=== PATIENT | female | born 1945 | race Hispanic/Latino ===

== ENCOUNTER 2019-01-13 06:44 | Inpatient (IN) | payer MEDICARE ==
--- NOTE | 2019-01-13 07:32 | Emergency Department Report ---
ED General Adult HPI - General Chief complaint: Dyspnea/Respdistress Stated complaint: ELLIE Time Seen by Provider: 01/13/19 06:56 Source: patient, EMS Mode of arrival: Stretcher Limitations: No Limitations - History of Present Illness Initial comments: The patient presents to emergency department with a chief complaint of increased shortness of breath with exertion. The patient recently flew from [place] through [place] to [facility] for vacation and they were on the first leg back to [place] and had a layover in [place] when they decided they should seek medical attention. Patient does endorse having some chest pain yesterday and also endorses being a smoker. -: Sudden Severity scale (0 -10): 0 Improves with: none Worsens with: none Associated Symptoms: denies other symptoms Treatments Prior to Arrival: none - Related Data Allergies Allergy/AdvReac Type Severity Reaction Status Date / Time No Known Allergies Allergy Verified 01/13/19 06:45 ED Review of Systems ROS: Stated complaint: ELLIE Other details as noted in HPI Comment: All other systems reviewed and negative Constitutional: denies: chills, fever Eyes: denies: eye pain, eye discharge, vision change ENT: denies: ear pain, throat pain Respiratory: shortness of breath, SOB with exertion. denies: cough, wheezing Cardiovascular: denies: chest pain, palpitations Endocrine: no symptoms reported Gastrointestinal: denies: abdominal pain, nausea, diarrhea Genitourinary: denies: urgency, dysuria, discharge Musculoskeletal: denies: back pain, joint swelling, arthralgia Skin: denies: rash, lesions Neurological: denies: headache, weakness, paresthesias Psychiatric: denies: anxiety, depression Hematological/Lymphatic: denies: easy bleeding, easy bruising ED Past Medical Hx - Past Medical History Previous Medical History?: Yes Hx Hypertension: Yes Hx of Cancer: Yes (Skin) Hx COPD: Yes - Surgical History Past Surgical History?: Yes Additional Surgical History: Hysterectomy. Back - Social History Smoking Status: Current Every Day Smoker Substance Use Type: None ED Physical Exam - General Limitations: No Limitations General appearance: alert, in no apparent distress - Head Head exam: Present: atraumatic, normocephalic - Eye Eye exam: Present: normal appearance, PERRL, EOMI - ENT ENT exam: Present: mucous membranes moist - Neck Neck exam: Present: normal inspection - Respiratory Respiratory exam: Present: normal lung sounds bilaterally, rales. Absent: respiratory distress, wheezes - Cardiovascular Cardiovascular Exam: Present: regular rate, normal rhythm. Absent: systolic m urmur, diastolic murmur, rubs, gallop - GI/Abdominal GI/Abdominal exam: Present: soft, normal bowel sounds. Absent: distended, tenderness - Extremities Exam Extremities exam: Present: normal inspection - Back Exam Back exam: Present: normal inspection - Neurological Exam Neurological exam: Present: alert, oriented X3, CN II-XII intact. Absent: motor sensory deficit - Psychiatric Psychiatric exam: Present: normal affect, normal mood - Skin Skin exam: Present: warm, dry, intact, normal color. Absent: rash ED Course Vital Signs 01/13/19 06:45 Temperature 97.6 F Pulse Rate 102 H Respiratory 22 Rate Blood Pressure 136/70 O2 Sat by Pulse 93 Oximetry ED Medical Decision Making - Lab Data Result diagrams: 01/13/19 07:34 01/13/19 07:35 Lab Results 01/13/19 01/13/19 01/13/19 Range/Units 07:34 07:35 07:35 WBC 13.0 H (4.5-11.0) K/mm3 RBC 3.95 (3.65-5.03) M/mm3 Hgb 12.7 (10.1-14.3) gm/dl Hct 36.5 (30.3-42.9) % MCV 92 (79-97) fl MCH 32 (28-32) pg MCHC 35 H (30-34) % RDW 14.3 (13.2-15.2) % Plt Count 196 (140-440) K/mm3 Lymph % (Auto) 7.4 L (13.4-35.0) % [place] % (Auto) 7.1 (0.0-7.3) % Eos % (Auto) 0.2 (0.0-4.3) % Baso % (Auto) 0.2 (0.0-1.8) % Lymph # 1.0 L (1.2-5.4) K/mm3 [place] # 0.9 H (0.0-0.8) K/mm3 Eos # 0.0 (0.0-0.4) K/mm3 Baso # 0.0 (0.0-0.1) K/mm3 Seg Neutrophils % 85.1 H (40.0-70.0) % Seg Neutrophils # 11.1 H (1.8-7.7) K/mm3 PT 14.3 (12.2-14.9) Sec. INR 1.05 (0.87-1.13) APTT 32.2 (24.2-36.6) Sec. POC ABG pH (7.35-7.45) POC ABG pCO2 (35-45) POC ABG pO2 (80-105) POC ABG HCO3 (22-26 mml/L) POC ABG Total CO2 (23-27mmol/L) POC ABG O2 Sat POC ABG Base Excess ((-2) - (+3)mmol/L) FiO2 % Sodium 140 (137-145) mmol/L Potassium 3.4 L (3.6-5.0) mmol/L Chloride 102.5 (98-107) mmol/L Carbon Dioxide 22 (22-30) mmol/L Anion Gap 19 mmol/L BUN 22 H (7-17) mg/dL Creatinine 0.8 (0.7-1.2) mg/dL Estimated GFR > 60 ml/min BUN/Creatinine Ratio 28 % Glucose 120 H (65-100) mg/dL Calcium 9.2 (8.4-10.2) mg/dL Total Bilirubin 2.20 H (0.1-1.2) mg/dL AST 43 H (5-40) units/L ALT 30 (7-56) units/L Alkaline Phosphatase 149 H (35-129) units/L Troponin T (0.00-0.029) ng/mL NT-Pro-B Natriuret Pep 6541 H (0-900) pg/mL Total Protein 6.4 (6.3-8.2) g/dL Albumin 3.4 L (3.9-5) g/dL Albumin/Globulin Ratio 1.1 % 01/13/19 01/13/19 Range/Units 07:35 08:19 WBC (4.5-11.0) K/mm3 RBC (3.65-5.03) M/mm3 Hgb (10.1-14.3) gm/dl Hct (30.3-42.9) % MCV (79-97) fl MCH (28-32) pg MCHC (30-34) % RDW (13.2-15.2) % Plt Count (140-440) K/mm3 Lymph % (Auto) (13.4-35.0) % [place] % (Auto) (0.0-7.3) % Eos % (Auto) (0.0-4.3) % Baso % (Auto) (0.0-1.8) % Lymph # (1.2-5.4) K/mm3 [place] # (0.0-0.8) K/mm3 Eos # (0.0-0.4) K/mm3 Baso # (0.0-0.1) K/mm3 Seg Neutrophils % (40.0-70.0) % Seg Neutrophils # (1.8-7.7) K/mm3 PT (12.2-14.9) Sec. INR (0.87-1.13) APTT (24.2-36.6) Sec. POC ABG pH 7.378 (7.35-7.45) POC ABG pCO2 34.0 L (35-45) POC ABG pO2 53 L (80-105) POC ABG HCO3 20.0 (22-26 mml/L) POC ABG Total CO2 21 (23-27mmol/L) POC ABG O2 Sat 87 POC ABG Base Excess -5 ((-2) - (+3)mmol/L) FiO2 40 % Sodium (137-145) mmol/L Potassium (3.6-5.0) mmol/L Chloride (98-107) mmol/L Carbon Dioxide (22-30) mmol/L Anion Gap mmol/L BUN (7-17) mg/dL Creatinine (0.7-1.2) mg/dL Estimated GFR ml/min BUN/Creatinine Ratio % Glucose (65-100) mg/dL Calcium (8.4-10.2) mg/dL Total Bilirubin (0.1-1.2) mg/dL AST (5-40) units/L ALT (7-56) units/L Alkaline Phosphatase (35-129) units/L Troponin T 0.029 (0.00-0.029) ng/mL NT-Pro-B Natriuret Pep (0-900) pg/mL Total Protein (6.3-8.2) g/dL Albumin (3.9-5) g/dL Albumin/Globulin Ratio % - Radiology Data Radiology results: report reviewed - Medical Decision Making The patient was placed on nonrebreather mask at 15 L and O2 sats increased to 96% O2 was removed the patient's oxygen level dropped to 58% 30 mL/kg IV fluids were declined due to Fluid Overload by the Patient and Her Sister Who Is a Nurse. IV antibiotics initiated IV Lasix was given Discussed results in detail with the patient and her sister Critical Care Time: Yes Critical care time in (mins) excluding proc time.: 45 Critical care attestation.: If time is entered above; I have spent that time in minutes in the direct care of this critically ill patient, excluding procedure time. ED Disposition Clinical Impression: Hypoxia, Pulmonary edema Disposition: OP ADMIT IP TO THIS HOSP Is pt being admited?: Yes Does the pt Need Aspirin: No Condition: Stable Instructions: Pulmonary Edema (ED) Referrals: NILDA JOHNS MD [Primary Care Provider] - 3-5 Days
[2019-01-13 07:42] LABS: Basophils % (Auto) 0.2 % (0.0-1.8); Eosinophils % (Auto) 0.2 % (0.0-4.3); Hematocrit 36.5 % (30.3-42.9); Hemoglobin 12.7 gm/dl (10.1-14.3); Lymphocytes % (Auto) 7.4 % (13.4-35.0); Mean Corpuscular HGB Conc 35 % (30-34); Mean Corpuscular Volume 92 fl (79-97); Monocytes # (Auto) 0.9 K/mm3 (0.0-0.8); Monocytes % (Auto) 7.1 % (0.0-7.3); Platelet Count 196 K/mm3 (140-440); Red Blood Count 3.95 M/mm3 (3.65-5.03); Red Cell Distribution Width 14.3 % (13.2-15.2)
[2019-01-13 07:53] LABS: INR 1.05 (0.87-1.13); Partial Thromboplastin Time 32.2 Sec. (24.2-36.6)
[2019-01-13 08:07] LABS: Alanine Aminotransferase 30 units/L (7-56); Albumin 3.4 g/dL (3.9-5); BUN/Creatinine Ratio 28; Blood Urea Nitrogen 22 mg/dL (7-17); Calcium 9.2 mg/dL (8.4-10.2); Hemolysis Index 0
--- NOTE | 2019-01-13 09:31 | Cat Scan Report ---
PROCEDURE: CT ANGIO CHEST TECHNIQUE: CT angiography of the chest was performed. IV contrast was administered. Axial images and coronal and sagittal reformatted images were obtained. HISTORY: hypoxia/PE COMPARISON: None FINDINGS: There are atherosclerotic calcifications in the thoracic aorta. There are coronary artery calcifications. There is no aortic dissection seen. There are no abnormal pulmonary arterial filling defects seen to indicate acute pulmonary emboli. There are nonspecific small to borderline lymph nodes in the mediastinum. There is diffuse interstitial thickening. While some of this may be chronic, appearance suggests poss ible superimposed interstitial infiltrate or edema. There is mild emphysema. There is no pneumothorax seen. There is a 3.4 cm left adrenal gland mass. IMPRESSION: There is no aortic dissection or pulmonary embolism seen. Diffuse interstitial thickening. While some of this could be chronic, I cannot exclude superimposed i nterstitial infiltrate or edema. Mild emphysema. Coronary and aortic atherosclerotic calcification. 3.4 cm left adrenal gland mass. Most likely this is a benign adenoma. Nevertheless, if stability vivian ot be established by comparison to old studies, consider correlation with MRI. This document is electronically signed by Meg Love MD., January 13 2019 09:29:11 AM ET
[2019-01-13] MEDS ORDERED: LASIX IV ONE (10:14)
[2019-01-13] MEDS ORDERED: ZITHROMAX 500 MG in NACL 0.9% 250ML 250 ML IV SCH (11:00)
[2019-01-13] MEDS ORDERED: LASIX ONE (11:17)
--- NOTE | 2019-01-13 12:08 | History and Physical Report ---
History of Present Illness Date of examination: 01/13/19 Date of admission: 01/13/19 10:20 Chief complaint: Shortness of breath History of present illness: Patient is 73 yo with CHF, COPD, hypertension. She lives in [place], went to [place] for family reunion. In [place], became short of breath but came on flight, transited [place]. Shortness of breath worse therefore came to ED for evaluation. CT shows interstital infiltrates vs edema, no PE. Patient states she missed lasix for 2 days. She was very short of breath in ED, therefore started on supplemental Oxygen by ventimask. She was initially admitted to [facility]. Will transfer to Telemetry. Past History Past Medical History: COPD, heart failure (Systolic), hypertension Past Surgical History: hysterectomy, Other (Back surgery) Social history: lives with family, smoking (Smokes 1 pack cigarettes/day for 50yrs) Family history: cancer (Breast), hypertension Medications and Allergies Allergies Allergy/AdvReac Type Severity Reaction Status Date / Time No Known Allergies Allergy Verified 01/13/19 06:45 Home Medications Medication Instructions Recorded Confirmed Last Taken Type AtorvaSTATin [Lipitor] 20 mg PO QHS 01/13/19 01/13/19 Unknown History Furosemide [Lasix] 20 mg PO QDAY 01/13/19 01/13/19 Unknown History Metoprolol Tartrate 50 mg PO QAM 01/13/19 01/13/19 Unknown History Oxybutynin Xl [Ditropan Xl] 5 mg PO DAILY 01/13/19 01/13/19 Unknown History PARoxetine HCl [PARoxetine] 40 mg PO QAM 01/13/19 01/13/19 Unknown History amLODIPine [Norvasc] 5 mg PO DAILY 01/13/19 01/13/19 Unknown History traZODone [Desyrel] 100 mg PO QHS 01/13/19 01/13/19 Unknown History Ambien 5 PO 01/14/19 Unknown History Active Meds: Active Medications Azithromycin 500 mg/ Sodium (Chloride) 250 mls @ 250 mls/hr IV Q24HR [facility]; Protocol Last Admin: 01/13/19 11:26 Dose: 250 mls/hr Documented by: Ceftriaxone Sodium (Rocephin/Ns 2 Gm/100 Ml) 2 gm in 100 mls @ 200 mls/hr IV Q24H [facility]; Protocol Review of Systems All systems: negative (No fever, No headache, no abd pain, no urinary symptoms. All other systems reviewed and are negative) Exam - Physical Exam Narrative exam: GEN: In mild respiratory distress, lying in bed, venti mask on HEENT: Normocephalic, atraumatic, Neck: supple, No JVD heart: S1 and S2 reg tachycardia, no murmurs,has gallop Lungs: Bilateral basal crackles , no wheeze Abd:soft, non tender, non distended, normal bowel sounds Ext: No edema,no clubbing, no cyanosis, Neuro:Awake,alert,oriented X 3, no focal signs, moves all ext Psych: normal mood - Constitutional Vitals: Temp Pulse Resp BP Pulse Ox 97.6 F 90 22 128/70 93 01/13/19 06:45 01/13/19 11:26 01/13/19 11:26 01/13/19 11:26 01/13/19 11:26 Results - Labs CBC & Chem 7: 01/14/19 05:20 01/14/19 05:20 Labs: Abnormal lab results 01/13/19 01/13/19 01/13/19 Range/Units 07:34 07:35 08:19 WBC 13.0 H (4.5-11.0) K/mm3 MCHC 35 H (30-34) % Lymph % (Auto) 7.4 L (13.4-35.0) % Lymph # 1.0 L (1.2-5.4) K/mm3 [place] # 0.9 H (0.0-0.8) K/mm3 Seg Neutrophils % 85.1 H (40.0-70.0) % Seg Neutrophils # 11.1 H (1.8-7.7) K/mm3 POC ABG pCO2 34.0 L (35-45) POC ABG pO2 53 L (80-105) Potassium 3.4 L (3.6-5.0) mmol/L BUN 22 H (7-17) mg/dL Glucose 120 H (65-100) mg/dL Total Bilirubin 2.20 H (0.1-1.2) mg/dL AST 43 H (5-40) units/L Alkaline Phosphatase 149 H (35-129) units/L NT-Pro-B Natriuret Pep 6541 H (0-900) pg/mL Albumin 3.4 L (3.9-5) g/dL Assessment and Plan Acute respiratory failure due to CHF exacerbation. Admit to Telemetry Oxygen supplementation Consult Pulmonology Patient lives in [place], in transit Acute on chronic systolic CHF patient admits she missed 2 days of lasix Lasix iv bid Consult cardiology Obtain Echo COPD Emphesema changes seen on CT chest Duoneb Hypertension Monitor BP DVT prophylaxis. Will start Heparin Full code status
[2019-01-13] MEDS ORDERED: SODIUM CHLORIDE FLUSH SYRINGE 10 ML IV PRN (12:27)
[2019-01-13] MEDS ORDERED: MORPHINE IV PRN (12:27)
[2019-01-13] MEDS ORDERED: PROVENTIL IH PRN (12:27)
[2019-01-13] MEDS ORDERED: ZOFRAN IV PRN (12:27)
[2019-01-13] MEDS ORDERED: NITROSTAT SL PRN (13:34)
[2019-01-13] MEDS: ROCEPHIN/NS 2 GM/100 ML 2 GM/100 ML BAG IV SCH (13:44)
--- NOTE | 2019-01-13 14:06 | Consultation ---
History of Present Illness Consult date: 01/13/19 Requesting physician: GUNJAN WRIGHT Consult reason: congestive heart failure History of present illness: The pt is 73 yo female with a past medical history of HF (last known EF 30-35%), reported AMI >10 years ago with no intervention required, HTN, HLP, ? COPD (recently told by her medical/surgery registered nurse that she didnt have COPD anymore), tobacco use (smokes 1PPD x 50 years), ETOH use (drinks 3 glasses wine daily). She is from [facility] and recently travelled to [place], [place] for family reunion 5 days ago. She has been progressively SOB since the onset of her trip and today, while walking around the [place] airport waiting for connecting flight, she became severely SOB and decided to seek medical attention. Patient states she missed her lasix for 2 days. CXR with pulmonary edema. PT denies any chest pain, palpitations, n/v, diaphoresis, dizziness or syncope. She reports that she underwent coronary angiogram in 11/2017 prior to lumbar laminectomy and fusion and was told that her coronaries were "clean". Past History Past Medical History: COPD, heart failure (CMP), hypertension, hyperlipidemia Past Surgical History: hysterectomy, Other (Back surgery x2) Social history: lives with family, smoking (Smokes 1 pack cigarettes/day for 50yrs), alcohol abuse (drinks 3 glasses wine daily) Family history: cancer (Breast), hypertension Medications and Allergies Allergies Allergy/AdvReac Type Severity Reaction Status Date / Time No Known Allergies Allergy Verified 01/13/19 06:45 Home Medications Medication Instructions Recorded Confirmed Last Taken Type AtorvaSTATin [Lipitor] 20 mg PO QHS 01/13/19 01/13/19 Unknown History Furosemide [Lasix] 20 mg PO QDAY 01/13/19 01/13/19 Unknown History Metoprolol Tartrate 50 mg PO QAM 01/13/19 01/13/19 Unknown History Oxybutynin Xl [Ditropan Xl] 5 mg PO DAILY 01/13/19 01/13/19 Unknown History PARoxetine HCl [PARoxetine] 40 mg PO QAM 01/13/19 01/13/19 Unknown History amLODIPine [Norvasc] 5 mg PO DAILY 01/13/19 01/13/19 Unknown History traZODone [Desyrel] 100 mg PO QHS 01/13/19 01/13/19 Unknown History Active Meds: Active Medications Acetaminophen (Tylenol) 650 mg PO Q4H PRN PRN Reason: Pain MILD(1-3)/Fever >100.5/OTERO Albuterol (Proventil) 2.5 mg IH Q4HRT PRN PRN Reason: Shortness Of Breath Atorvastatin Calcium (Lipitor) 20 mg PO QHS [facility] Famotidine (Pepcid) 20 mg PO BID [facility] Furosemide (Lasix) 40 mg IV BID@0600,1800 [facility] Azithromycin 500 mg/ Sodium (Chloride) 250 mls @ 250 mls/hr IV Q24HR [facility]; Prot ocol Last Admin: 01/13/19 11:26 Dose: 250 mls/hr Documented by: Ceftriaxone Sodium (Rocephin/Ns 2 Gm/100 Ml) 2 gm in 100 mls @ 200 mls/hr IV Q24H [facility]; Protocol Last Admin: 01/13/19 13:44 Dose: 200 mls/hr Documented by: Metoprolol Tartrate (Lopressor) 50 mg PO QAM [facility] Miscellaneous Medication (Paroxetine Hcl [Paroxetine]) 40 mg PO QAM [facility] Morphine Sulfate (Morphine) 2 mg IV Q4H PRN PRN Reason: Pain, Moderate (4-6) Nitroglycerin (Nitrostat) 0.4 mg SL .Q5MIN PRN PRN Reason: Chest Pain Ondansetron HCl (Zofran) 4 mg IV Q8H PRN PRN Reason: Nausea And Vomiting Oxybutynin Chloride (Ditropan Xl) 5 mg PO DAILY [facility] Sodium Chloride (Sodium Chloride Flush Syringe 10 Ml) 10 ml IV BID [facility] Sodium Chloride (Sodium Chloride Flush Syringe 10 Ml) 10 ml IV PRN PRN PRN Reason: LINE FLUSH Review of Systems Constitutional: no weight loss, no weight gain, no fever, no chills, no sweats Ears, nose, mouth and throat: no ear pain, no nose pain, no sinus pressure, no sinus pain Cardiovascular: orthopnea, shortness of breath, dyspnea on exertion, paroxysmal nocturnal dyspnea, decreased exercise tolerance, no chest pain, no palpitations, no rapid/irregular heart beat, no edema, no syncope, no lightheadedness, no leg edema Respiratory: cough, shortness of breath, dyspnea on exertion, no congestion, no wheezing, no pain on inspiration Gastrointestinal: no abdominal pain, no nausea, no vomiting, no diarrhea, no constipation, no change in bowel habits Genitourinary Female: no pelvic pain, no flank pain, no dysuria, no urinary frequency, no urgency Musculoskeletal: no neck stiffness, no neck pain, no shooting arm pain, no arm numbness/tingling, no low back pain, no shooting leg pain Integumentary: no rash, no pruritis, no redness, no sores, no wounds Neurological: no head injury, no paralysis, no weakness, no parathesias, no numbness, no tingling, no seizures, no syncope Psychiatric: no anxiety Endocrine: no cold intolerance, no heat intolerance Hematologic/Lymphatic: no easy bruising, no easy bleeding Allergic/Immunologic: no urticaria Physical Examination Vital Signs Temp Pulse Resp BP Pulse Ox 97.6 F 102 H 22 136/70 93 01/13/19 06:45 01/13/19 06:45 01/13/19 06:45 01/13/19 06:45 01/13/19 06:45 General appearance: other (SOB) HEENT: Positive: PERRL Neck: Positive: neck supple, trachea midline Cardiac: Positive: Reg Rate and Rhythm, S1/S2, S3 Lungs: Positive: Decreased Breath Sounds, Rales, Oxygen Neuro: Positive: Grossly Intact Abdomen: Positive: Soft. Negative: Tender Skin: Negative: Rash Musculoskeletal: No Pain Extremities: Absent: edema Results 01/13/19 07:34 01/13/19 07:35 Cardiac Enzymes 01/13/19 Range/Units 07:35 AST 43 H (5-40) units/L Coagulation 01/13/19 Range/Units 07:35 PT 14.3 (12.2-14.9) Sec. INR 1.05 (0.87-1.13) APTT 32.2 (24.2-36.6) Sec. CBC 01/13/19 Range/Units 07:34 WBC 13.0 H (4.5-11.0) K/mm3 RBC 3.95 (3.65-5.03) M/mm3 Hgb 12.7 (10.1-14.3) gm/dl Hct 36.5 (30.3-42.9) % Plt Count 196 (140-440) K/mm3 Lymph # 1.0 L (1.2-5.4) K/mm3 [place] # 0.9 H (0.0-0.8) K/mm3 Eos # 0.0 (0.0-0.4) K/mm3 Baso # 0.0 (0.0-0.1) K/mm3 Comprehensive Metabolic Panel 01/13/19 Range/Units 07:35 Sodium 140 (137-145) mmol/L Potassium 3.4 L (3.6-5.0) mmol/L Chloride 102.5 (98-107) mmol/L Carbon Dioxide 22 (22-30) mmol/L BUN 22 H (7-17) mg/dL Creatinine 0.8 (0.7-1.2) mg/dL Glucose 120 H (65-100) mg/dL Calcium 9.2 (8.4-10.2) mg/dL AST 43 H (5-40) units/L ALT 30 (7-56) units/L Alkaline Phosphatase 149 H (35-129) units/L Total Protein 6.4 (6.3-8.2) g/dL Albumin 3.4 L (3.9-5) g/dL - Imaging and Cardiology Echo: pending EKG: report reviewed, image reviewed EKG interpretations - Telemetry EKG Rhythm: Sinus Rhythm - EKG Sinus rhythms and dysrhythmias: sinus rhythm AV and intraventricular conduction: right bundle branch block Assessment and Plan Cont GDMT and IV diuresis as tolerated. Obtain echo. Initiate remote telemetry and tx to telemetry floor. D/w Dr. Wright. The patient has been seen in conjunction with Dr. Sayra Machuca who agrees with the assessment and plan of care. - Patient Problems (1) Acute heart failure Current Visit: Yes Status: Acute (2) Acute respiratory failure Current Visit: Yes Status: Acute (3) Pulmonary edema Current Visit: Yes Status: Acute (4) History of cardiomyopathy Current Visit: Yes Status: Chronic (5) HTN (hypertension) Current Visit: Yes Status: Chronic (6) Hyperlipidemia Current Visit: Yes Status: Chronic (7) COPD (chronic obstructive pulmonary disease) Current Visit: Yes Status: Chronic (8) Tobacco use Current Visit: Yes Status: Chronic (9) Alcohol use Current Visit: Yes Status: Chronic
[2019-01-13] MEDS ORDERED: LOPRESSOR PO SCH (15:00)
[2019-01-13] MEDS: DITROPAN XL PO SCH (15:31)
[2019-01-13] MEDS: PEPCID PO SCH ×3 (15:31→20:46)
--- NOTE | 2019-01-13 16:47 | XRay Report ---
PROCEDURES: XR CHEST 1V AP TECHNIQUE: AP portable view of the chest. HISTORY: sob COMPARISON: None FINDINGS: Lines, tubes, and devices: N/A Lungs and pleura: Trachea is normal in position. Bilateral alveolar infiltrates are noted suggesting pulmonary edema given the symmetry. Pneumonia is not entirely excluded. Cardiomediastinal silhouette: Heart is upper limits normal in size. Calcification of the aortic arch is noted. Other: Bony structures are intact. IMPRESSION: Bilateral alveolar infiltrates, likely related to pulmonary edema. Pneumonia is not excluded This document is electronically signed by Luci Espinoza MD., January 13 2019 04:45:51 PM ET
[2019-01-13] MEDS: DUONEB *Not for PRN Use IH SCH (20:00)
[2019-01-13] MEDS: TYLENOL PO PRN (20:44)
[2019-01-13] MEDS: LOPRESSOR PO SCH ×2 (20:47)
[2019-01-13] MEDS: SODIUM CHLORIDE FLUSH SYRINGE 10 ML IV SCH (22:51)
[2019-01-14 01:12] LABS: Bilirubin,Urine NEG (Negative); Blood,Urine NEG (Negative); Color,Urine Amber (Yellow)
[2019-01-14] MEDS: LASIX IV SCH ×2 (05:51→17:10)
[2019-01-14 06:08] LABS: Basophils % (Auto) 0.2 % (0.0-1.8); Eosinophils # (Auto) 0.1 K/mm3 (0.0-0.4); Eosinophils % (Auto) 0.8 % (0.0-4.3); Hematocrit 38.4 % (30.3-42.9); Hemoglobin 13.2 gm/dl (10.1-14.3); Lymphocytes # (Auto) 1.3 K/mm3 (1.2-5.4); Lymphocytes % (Auto) 10.9 % (13.4-35.0); Mean Corpuscular HGB Conc 34 % (30-34); Mean Corpuscular Volume 94 fl (79-97); Monocytes # (Auto) 0.9 K/mm3 (0.0-0.8); Monocytes % (Auto) 7.8 % (0.0-7.3); Platelet Count 205 K/mm3 (140-440); Red Blood Count 4.08 M/mm3 (3.65-5.03); Red Cell Distribution Width 14.1 % (13.2-15.2)
[2019-01-14 06:30] LABS: BUN/Creatinine Ratio 34; Blood Urea Nitrogen 17 mg/dL (7-17); Calcium 9.3 mg/dL (8.4-10.2); Hemolysis Index 16
[2019-01-14] MEDS: DUONEB *Not for PRN Use IH SCH ×3 (08:01→20:43)
[2019-01-14] MEDS ORDERED: NON-FORMULARY (Paroxetine Hcl [Paroxetine] 40 MG) PO SCH (10:00)
[2019-01-14] MEDS: PAXIL PO SCH (10:57)
[2019-01-14] MEDS: K-DUR PO SCH ×3 (10:57→16:00)
[2019-01-14] MEDS: DITROPAN XL PO SCH (10:57)
[2019-01-14] MEDS: ZESTRIL PO SCH (10:58)
[2019-01-14] MEDS: LOPRESSOR PO SCH ×2 (10:58→21:00)
[2019-01-14] MEDS: PEPCID PO SCH ×2 (10:58→21:00)
[2019-01-14] MEDS: SODIUM CHLORIDE FLUSH SYRINGE 10 ML IV SCH ×2 (10:59→21:00)
[2019-01-14] MEDS: ROCEPHIN/NS 2 GM/100 ML 2 GM/100 ML BAG IV SCH ×2 (10:59)
[2019-01-14] MEDS: ZITHROMAX 500 MG in NACL 0.9% 250ML 250 ML IV SCH (11:55)
--- NOTE | 2019-01-14 12:00 | Progress Note ---
Assessment and Plan Cont GDMT and IV diuresis as tolerated. Replete K+. Await echo. Attempt to obtain medical records from [place]. D/w pt and pt's sister at bedside. Await pulmonary consultation and recs. The patient has been seen in conjunction with Dr. Sayra Machuca who agrees with the assessment and plan of care. - Patient Problems (1) Acute heart failure Current Visit: Yes Status: Acute (2) Acute respiratory failure Current Visit: Yes Status: Acute (3) Pulmonary edema Current Visit: Yes Status: Acute (4) History of cardiomyopathy Current Visit: Yes Status: Chronic (5) HTN (hypertension) Current Visit: Yes Status: Chronic (6) Hyperlipidemia Current Visit: Yes Status: Chronic (7) COPD (chronic obstructive pulmonary disease) Current Visit: Yes Status: Chronic (8) Tobacco use Current Visit: Yes Status: Chronic (9) Alcohol use Current Visit: Yes Status: Chronic Subjective Date of service: 01/14/19 Principal diagnosis: HF Interval history: pt resting in bed, states SOB slightly improved. On O2 via ventimask. in SR on tele. Objective Last Vital Signs Temp 98.4 F 01/14/19 08:17 Pulse 87 01/14/19 10:58 Resp 24 01/14/19 08:17 BP 145/69 01/14/19 10:58 Pulse Ox 93 01/14/19 08:17 - Physical Examination General: Other (SOB) HEENT: Positive: PERRL Neck: Positive: neck supple, trachea midline Cardiac: Positive: Reg Rate and Rhythm, S1/S2, S4 Lungs: Positive: Rales Neuro: Positive: Grossly Intact Abdomen: Positive: Soft. Negative: Tender Skin: Negative: Rash Musculoskeletal: No Pain Extremities: Absent: edema - Labs and Meds CBC 01/14/19 Range/Units 05:20 WBC 11.7 H (4.5-11.0) K/mm3 RBC 4.08 (3.65-5.03) M/mm3 Hgb 13.2 (10.1-14.3) gm/dl Hct 38.4 (30.3-42.9) % Plt Count 205 (140-440) K/mm3 Lymph # 1.3 (1.2-5.4) K/mm3 [place] # 0.9 H (0.0-0.8) K/mm3 Eos # 0.1 (0.0-0.4) K/mm3 Baso # 0.0 (0.0-0.1) K/mm3 Comprehensive Metabolic Panel 01/14/19 Range/Units 05:20 Sodium 142 (137-145) mmol/L Potassium 3.1 L (3.6-5.0) mmol/L Chloride 102.0 (98-107) mmol/L Carbon Dioxide 25 (22-30) mmol/L BUN 17 (7-17) mg/dL Creatinine 0.5 L (0.7-1.2) mg/dL Glucose 109 H (65-100) mg/dL Calcium 9.3 (8.4-10.2) mg/dL - Imaging and Cardiology EKG: report reviewed, image reviewed Echo: pending - Telemetry EKG Rhythm: Sinus Rhythm - EKG Sinus rhythms and dysrhythmias: sinus rhythm AV and intraventricular conduction: right bundle branch block
--- NOTE | 2019-01-14 15:02 | Progress Note ---
Assessment and Plan Assessment and plan: Acute respiratory failure due to CHF exacerbation. Admitted to Telemetry Oxygen supplementation Pulmonology Acute on chronic systolic CHF patient admits she missed 2 days of lasix Lasix iv bid Cardiology following Obtain Echo COPD exacerbation Emphesema changes seen on CT chest Duoneb Start solu-medrol Fever,likely pneumonia Leukocytosis Bilateral pneumonia, possibly Blood cultures drawn Started Ceftriaxone and Azithromycin yesterday Hypertension Monitor BP DVT prophylaxis. SCDs, Heparin Full code status History Interval history: Mild improvement less shortness of breath Fever of 102 Hospitalist Physical - Physical exam Narrative exam: GEN: Not in acute respiratory distress, lying in bed, venti mask on HEENT: Normocephalic, atraumatic, Neck: supple, No JVD heart: S1 and S2 reg tachycardia, no murmurs,has gallop Lungs: Bilateral basal crackles , Abd:soft, non tender, non distended, normal bowel sounds Ext: No edema,no clubbing, no cyanosis, Neuro:Awake,alert,oriented X 3, no focal signs, moves all ext Psych: normal mood - Constitutional Vitals: Temp Pulse Resp BP Pulse Ox 97.7 F 92 H 20 124/67 90 01/14/19 13:18 01/14/19 13:34 01/14/19 13:34 01/14/19 13:18 01/14/19 13:18 General appearance: Present: other (SOB) Results - Labs CBC & Chem 7: 01/14/19 05:20 01/14/19 05:20 Labs: Laboratory Last Values WBC 11.7 K/mm3 (4.5-11.0) H 01/14/19 05:20 RBC 4.08 M/mm3 (3.65-5.03) 01/14/19 05:20 Hgb 13.2 gm/dl (10.1-14.3) 01/14/19 05:20 Hct 38.4 % (30.3-42.9) 01/14/19 05:20 MCV 94 fl (79-97) 01/14/19 05:20 MCH 32 pg (28-32) 01/14/19 05:20 MCHC 34 % (30-34) 01/14/19 05:20 RDW 14.1 % (13.2-15.2) 01/14/19 05:20 Plt Count 205 K/mm3 (140-440) 01/14/19 05:20 Lymph % (Auto) 10.9 % (13.4-35.0) L 01/14/19 05:20 [place] % (Auto) 7.8 % (0.0-7.3) H 01/14/19 05:20 Eos % (Auto) 0.8 % (0.0-4.3) 01/14/19 05:20 Baso % (Auto) 0.2 % (0.0-1.8) 01/14/19 05:20 Lymph # 1.3 K/mm3 (1.2-5.4) 01/14/19 05:20 [place] # 0.9 K/mm3 (0.0-0.8) H 01/14/19 05:20 Eos # 0.1 K/mm3 (0.0-0.4) 01/14/19 05:20 Baso # 0.0 K/mm3 (0.0-0.1) 01/14/19 05:20 Seg Neutrophils % 80.3 % (40.0-70.0) H 01/14/19 05:20 Seg Neutrophils # 9.4 K/mm3 (1.8-7.7) H 01/14/19 05:20 PT 14.3 Sec. (12.2-14.9) 01/13/19 07:35 INR 1.05 (0.87-1.13) 01/13/19 07:35 APTT 32.2 Sec. (24.2-36.6) 01/13/19 07:35 POC ABG pH 7.378 (7.35-7.45) 01/13/19 08:19 POC ABG pCO2 34.0 (35-45) L 01/13/19 08:19 POC ABG pO2 53 (80-105) L 01/13/19 08:19 POC ABG HCO3 20.0 (22-26 mml/L) 01/13/19 08:19 POC ABG Total CO2 21 (23-27mmol/L) 01/13/19 08:19 POC ABG O2 Sat 87 01/13/19 08:19 POC ABG Base Excess -5 ((-2) - (+3)mmol/L) 01/13/19 08:19 FiO2 40 % 01/13/19 08:19 Sodium 142 mmol/L (137-145) 01/14/19 05:20 Potassium 3.1 mmol/L (3.6-5.0) L 01/14/19 05:20 Chloride 102.0 mmol/L (98-107) 01/14/19 05:20 Carbon Dioxide 25 mmol/L (22-30) 01/14/19 05:20 Anion Gap 18 mmol/L 01/14/19 05:20 BUN 17 mg/dL (7-17) 01/14/19 05:20 Creatinine 0.5 mg/dL (0.7-1.2) L 01/14/19 05:20 Estimated GFR > 60 ml/min 01/14/19 05:20 BUN/Creatinine Ratio 34 % 01/14/19 05:20 Glucose 109 mg/dL (65-100) H 01/14/19 05:20 Lactic Acid 1.40 mmol/L (0.7-2.0) 01/13/19 13:15 Calcium 9.3 mg/dL (8.4-10.2) 01/14/19 05:20 Total Bilirubin 2.20 mg/dL (0.1-1.2) H 01/13/19 07:35 AST 43 units/L (5-40) H 01/13/19 07:35 ALT 30 units/L (7-56) 01/13/19 07:35 Alkaline Phosphatase 149 units/L (35-129) H 01/13/19 07:35 Troponin T 0.029 ng/mL (0.00-0.029) 01/13/19 07:35 NT-Pro-B Natriuret Pep 6541 pg/mL (0-900) H 01/13/19 07:35 Total Protein 6.4 g/dL (6.3-8.2) 01/13/19 07:35 Albumin 3.4 g/dL (3.9-5) L 01/13/19 07:35 Albumin/Globulin Ratio 1.1 % 01/13/19 07:35 Urine Color [place]iela (Yellow) 01/13/19 00:40 Urine Turbidity Clear (Clear) 01/13/19 00:40 Urine pH 6.0 (5.0-7.0) 01/13/19 00:40 Ur Specific [place] 1.033 (1.003-1.030) H 01/13/19 00:40 Urine Protein 30 mg/dl mg/dL (Negative) 01/13/19 00:40 Urine Glucose (UA) Neg mg/dL (Negative) 01/13/19 00:40 Urine Ketones Neg mg/dL (Negative) 01/13/19 00:40 Urine Blood Neg (Negative) 01/13/19 00:40 Urine Nitrite Neg (Negative) 01/13/19 00:40 Urine Bilirubin Neg (Negative) 01/13/19 00:40 Urine Urobilinogen 4.0 mg/dL (<2.0) 01/13/19 00:40 Ur Leukocyte Esterase Neg (Negative) 01/13/19 00:40 Urine WBC (Auto) 1.0 /HPF (0.0-6.0) 01/13/19 00:40 Urine RBC (Auto) 2.0 /HPF (0.0-6.0) 01/13/19 00:40 U Epithel Cells (Auto) 1.0 /HPF (0-13.0) 01/13/19 00:40 Active Medications - Current Medications Current Medications: Generic Name Dose Route Start Last Admin Trade Name Freq PRN Reason Stop Dose Admin Acetaminophen 650 mg 01/13/19 12:27 01/13/19 20:44 Tylenol PO 650 mg Q4H PRN Administration Pain MILD(1-3)/Fever >100.5/OTERO Albuterol 2.5 mg 01/13/19 12:27 Proventil IH Q4HRT PRN Shortness Of Breath Albuterol/Ipratropium 1 ampul 01/13/19 20:00 01/14/19 13:16 Duoneb *Not For Prn Use* IH 1 ampul TIDRT ARIELLA Administration Atorvastatin Calcium 20 mg 01/13/19 22:00 01/13/19 20:47 Lipitor PO 20 mg QHS ARIELLA Administration Famotidine 20 mg 01/13/19 15:00 01/14/19 10:58 Pepcid PO 20 mg BID ARIELLA Administration Furosemide 40 mg 01/13/19 18:00 01/14/19 05:51 Lasix IV 40 mg BID@0600,1800 ARIELLA Administration Azithromycin 500 mg/ Sodium 250 mls @ 250 mls/hr 01/14/19 10:00 01/14/19 11:55 Chloride IV 250 mls/hr Q24HR ARIELLA Administration Ceftriaxone Sodium 2 gm in 100 mls @ 200 mls/hr 01/14/19 10:00 01/14/19 10:59 Rocephin/Ns 2 Gm/100 Ml IV 200 mls/hr Q24HR ARIELLA Administration Protocol Lisinopril 10 mg 01/14/19 10:00 01/14/19 10:58 Zestril PO 10 mg QDAY ARIELLA Administration Methylprednisolone Sodium Succinate 80 mg 01/14/19 15:00 Solu-Medrol IV Q8HR [facility] Metoprolol Tartrate 25 mg 01/13/19 22:00 01/14/19 10:58 Lopressor PO 25 mg BID ARIELLA Administration Morphine Sulfate 2 mg 01/13/19 12:27 Morphine IV Q4H PRN Pain, Moderate (4-6) Nitroglycerin 0.4 mg 01/13/19 13:34 Nitrostat SL .Q5MIN PRN Chest Pain Ondansetron HCl 4 mg 01/13/19 12:27 Zofran IV Q8H PRN Nausea And Vomiting Oxybutynin Chloride 5 mg 01/13/19 15:00 01/14/19 10:57 Ditropan Xl PO 5 mg DAILY ARIELLA Administration Paroxetine HCl 40 mg 01/14/19 10:00 01/14/19 10:57 Paxil PO 40 mg DAILY ARIELLA Administration Potassium Chloride 40 meq 01/14/19 11:00 01/14/19 11:08 K-Dur PO 01/14/19 17:01 40 meq Q6H ARIELLA Administration Sodium Chloride 10 ml 01/13/19 22:00 01/14/19 10:59 Sodium Chloride Flush Syringe 10 Ml IV 10 ml BID ARIELLA Administration Sodium Chloride 10 ml 01/13/19 12:27 Sodium Chloride Flush Syringe 10 Ml IV PRN PRN LINE FLUSH Nutrition/Malnutrition Assess - Dietary Evaluation Nutrition/Malnutrition Findings: Nutrition Notes Start: 01/14/19 11:39 Freq: Status: Active Protocol: Document 01/14/19 11:39 RD (Rec: 01/14/19 12:00 RD [email or web address]) Co-Sign 01/14/19 11:39 LP Nutrition Notes 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 Pt states she is not eating well and has a poor appetite and weakness. Pt only eating a few bites of meals. Pt states she cannot eat well with oxygen mask on. Pt reports she has difficulty swallowing, not chewing. Pt reports only eating bites of food for several days. Pt willing to try supplemental nutrition drink. Pt requests softer foods. Pt reports wt loss of 30 lbs since November. Observed muscle depletion and fat depletion. Percent of energy/protein needs met: 0%/0% Burn Absent Trauma Absent Minimum of two criteria Yes Energy Intake (severe) < or equal to 50% Estimated Energy Requirement > or equal to 5 days Interpretation of Weight Loss (severe) >5% in 1 month Body Fat Depletion Moderate depletion (severe) Muscle Mass Moderate Depletion (severe) #2 Nutrition Diagnosis Malnutrition Etiology Weakness, decreased appetite As Evidenced by Signs and Symptoms Eating less than 50% of meals for 5 days, muscle depletion, fat depletion, 17.8% wt. loss in 1 month #1 Nutrition Diagnosis Inadequate oral intake Etiology Poor appetite As Evidenced by Signs and Symptoms Eating less than 25% of meals Is patient on ventilator? No Is Patient Ambulatory and/or Out of Bed Yes REE-([facility]-ambulatory/OOB) [ 1437.215 NUTR.[id number]] Calculation Used for Recommendations [facility] Additional Notes Protein needs: (1.2-1.5g/kg) 74-111g/day Fluid needs: 1mL/kcal Nutrition Intervention Change Diet Order: [facility] Soft/ Cardiac Add Supplement/Snack (indicate name/kcal Ensure Enlive BID /protein ) Provides kCal: 700 Provides Protein (gm) 40 Goal #1 Meet at least 75% of nutrient needs Anticipated Discharge Needs: Unable to determine at this time Follow-Up By: 01/16/19 Additional Comments f/u: PO and ONS intakes
[2019-01-14] MEDS ORDERED: SOLU-Medrol IV SCH (16:00)
[2019-01-14] MEDS ORDERED: HALDOL IV PRN (17:26)
--- NOTE | 2019-01-14 18:02 | Consultation ---
History of Present Illness Consult date: 01/14/19 Requesting physician: GUNJAN WRIGHT Reason for consult: hypoxemia History of present illness: 73 y/o female from [place], visiting the [facility] [place] when she felt so short of breath that she had to be transported to the hospital. patient CXR shows diffuse bilateral interstital changes and this is consistent on CT with what is most likely edema with some underlying COPD maybe some ILD. Patient is a current smoker. She is currently on bipap and not able to give much history as she is extremely agitated. No family present. BNP elevated at >6k and she has been started on lasix. She is hypoxic but not hypercapnic but bipap has been in itiated for help with oxygenation. Past History Past Medical History: COPD, heart failure (Systolic), hypertension Past Surgical History: hysterectomy, Other (Back surgery) Social history: lives with family, smoking (Smokes 1 pack cigarettes/day for 50yrs) Family history: cancer (Breast), hypertension Medications and Allergies Allergies Allergy/AdvReac Type Severity Reaction Status Date / Time No Known Allergies Allergy Verified 01/13/19 06:45 Home Medications Medication Instructions Recorded Confirmed Last Taken Type Metoprolol Tartrate 50 mg PO QAM 01/13/19 01/13/19 Unknown History Arformoterol Nebu [Brovana Nebu] 15 mcg IH Q12HR 30 Days neb 01/20/19 Unknown Rx Arformoterol Nebu [Brovana Nebu] 15 mcg IH Q12HRT 30 Days ml 01/20/19 Unknown Rx AtorvaSTATin [Lipitor] 20 mg PO QHS #30 tablet 01/20/19 Unknown Rx Azithromycin 250 mg PO DAILY 5 Days #5 tablet 01/20/19 Unknown Rx Azithromycin [Zithromax TAB] 500 mg PO QDAY 5 Days tablet 01/20/19 Unknown Rx Budesonide [Pulmicort Respules] 0.5 mg IH Q12HRT nebu 01/20/19 Unknown Rx Budesonide [Pulmicort] 0.5 mg IH BID 30 Days ampul.neb 01/20/19 Unknown Rx Famotidine [Pepcid] 20 mg PO BID tablet 01/20/19 Unknown Rx Furosemide [Lasix] 40 mg PO DAILY #30 tablet 01/20/19 Unknown Rx Ipratropium [Atrovent NEB] 0.5 mg IH TIDRT 30 Days nebu 01/20/19 Unknown Rx Ipratropium [Atrovent] 0.5 mg IH Q8HRT 30 Days ml 01/20/19 Unknown Rx Levalbuterol [Xopenex] 0.63 mg IH TIDRT nebu 01/20/19 Unknown Rx Lisinopril [Zestril TAB] 10 mg PO QDAY tablet 01/20/19 Unknown Rx Loperamide [Imodium] 2 mg PO Q2H PRN capsule 01/20/19 Unknown Rx Metoprolol [Lopressor TAB] 25 mg PO BID tablet 01/20/19 Unknown Rx Nicotine [Habitrol] 21 mg TD QDAY patch 01/20/19 Unknown Rx Nicotine [Nicotine Patch] 1 each TD DAILY #7 patch.td24 01/20/19 Unknown Rx Nicotine [Nicotine Patch] 21 each TD DAILY 7 Days #7 01/20/19 Unknown Rx patch.td24 Nitroglycerin [Nitrostat] 0.4 mg SL .Q5MIN PRN tablet 01/20/19 Unknown Rx Oxybutynin Xl [Ditropan Xl] 5 mg PO DAILY #30 tablet 01/20/19 Unknown Rx PARoxetine HCl [PARoxetine] 40 mg PO QAM #30 tablet 01/20/19 Unknown Rx PARoxetine [Paxil] 40 mg PO DAILY tablet 01/20/19 Unknown Rx Temazepam [Restoril] 15 mg PO QHS PRN capsule 01/20/19 Unknown Rx Tiotropium Br/Olodaterol HCl 4 gm IH DAILY #30 mist.inhal 01/20/19 Unknown Rx [Stiolto Respimat Inhal [place]] amLODIPine [Norvasc] 5 mg PO DAILY #30 tablet 01/20/19 Unknown Rx methylPREDNISolone [Medrol] 4 mg PO QAM #1 tab.ds.pk 01/20/19 Unknown Rx traZODone [Desyrel] 100 mg PO QHS #30 tablet 01/20/19 Unknown Rx Active Meds: Active Medications Acetaminophen (Tylenol) 650 mg PO Q4H PRN PRN Reason: Pain MILD(1-3)/Fever >100.5/OTERO Last Admin: 01/13/19 20:44 Dose: 650 mg Documented by: Albuterol (Proventil) 2.5 mg IH Q4HRT PRN PRN Reason: Shortness Of Breath Albuterol/Ipratropium (Duoneb *Not For Prn Use*) 1 ampul IH TIDRT [facility] Last Admin: 01/14/19 13:16 Dose: 1 ampul Documented by: Atorvastatin Calcium (Lipitor) 20 mg PO QHS [facility] Last Admin: 01/13/19 20:47 Dose: 20 mg Documented by: Famotidine (Pepcid) 20 mg PO BID [facility] Last Admin: 01/14/19 10:58 Dose: 20 mg Documented by: Furosemide (Lasix) 40 mg IV BID@0600,1800 [facility] Last Admin: 01/14/19 17:10 Dose: 40 mg Documented by: Haloperidol Lactate (Haldol) 5 mg IV Q6H PRN PRN Reason: Agitation Azithromycin 500 mg/ Sodium (Chloride) 250 mls @ 250 mls/hr IV Q24HR [facility] Last Admin: 01/14/19 11:55 Dose: 250 mls/hr Documented by: Ceftriaxone Sodium (Rocephin/Ns 2 Gm/100 Ml) 2 gm in 100 mls @ 200 mls/hr IV Q24HR [facility]; Protocol Last Admin: 01/14/19 10:59 Dose: 200 mls/hr Documented by: Lisinopril (Zestril) 10 mg PO QDAY [facility] Last Admin: 01/14/19 10:58 Dose: 10 mg Documented by: Methylprednisolone Sodium Succinate (Solu-Medrol) 80 mg IV Q8H [facility] Last Admin: 01/14/19 16:01 Dose: 80 mg Documented by: Metoprolol Tartrate (Lopressor) 25 mg PO BID [facility] Last Admin: 01/14/19 10:58 Dose: 25 mg Documented by: Morphine Sulfate (Morphine) 2 mg IV Q4H PRN PRN Reason: Pain, Moderate (4-6) Nicotine (Habitrol) 21 mg TD QDAY [facility] Nitroglycerin (Nitrostat) 0.4 mg SL .Q5MIN PRN PRN Reason: Chest Pain Ondansetron HCl (Zofran) 4 mg IV Q8H PRN PRN Reason: Nausea And Vomiting Oxybutynin Chloride (Ditropan Xl) 5 mg PO DAILY [facility] Last Admin: 01/14/19 10:57 Dose: 5 mg Documented by: Paroxetine HCl (Paxil) 40 mg PO DAILY [facility] Last Admin: 01/14/19 10:57 Dose: 40 mg Documented by: Sodium Chloride (Sodium Chloride Flush Syringe 10 Ml) 10 ml IV BID ARIELLA Last Admin: 01/14/19 10:59 Dose: 10 ml Documented by: Sodium Chloride (Sodium Chloride Flush Syringe 10 Ml) 10 ml IV PRN PRN PRN Reason: LINE FLUSH Physical Examination Vital signs: Vital Signs Temp Pulse Resp BP Pulse Ox 97.6 F 102 H 22 136/70 93 01/13/19 06:45 01/13/19 06:45 01/13/19 06:45 01/13/19 06:45 01/13/19 06:45 General appearance: alert, appears uncomfortable Eyes: non-icteric ENT: oropharynx moist Neck: supple, no JVD Effort: mildly labored Ascultation: Bilateral: rales Percussion: Bilateral: not dull Cardiovascular: regular rate and rhythm Gastrointestinal: normoactive bowel sounds, soft normal mental status, non-focal exam Results - Laboratory Findings CBC and BMP: 01/19/19 06:24 01/20/19 05:47 ABG POC ABG pH 7.444 (7.35-7.45) 01/14/19 15:57 POC ABG pCO2 31.8 (35-45) L 01/14/19 15:57 POC ABG pO2 59 (80-105) L 01/14/19 15:57 POC ABG HCO3 21.8 (22-26 mml/L) 01/14/19 15:57 POC ABG Total CO2 23 (23-27mmol/L) 01/14/19 15:57 POC ABG O2 Sat 92 01/14/19 15:57 PT/INR, D-dimer PT 14.3 Sec. (12.2-14.9) 01/13/19 07:35 INR 1.05 (0.87-1.13) 01/13/19 07:35 Abnormal lab findings: Abnormal Labs 01/13/19 01/13/19 01/13/19 00:40 07:34 07:35 WBC 13.0 H MCHC 35 H Lymph % (Auto) 7.4 L [place] % (Auto) Lymph # 1.0 L [place] # 0.9 H Seg Neutrophils % 85.1 H Seg Neutrophils # 11.1 H POC ABG pCO2 POC ABG pO2 Potassium 3.4 L BUN 22 H Creatinine Glucose 120 H Total Bilirubin 2.20 H AST 43 H Alkaline Phosphatase 149 H NT-Pro-B Natriuret Pep 6541 H Albumin 3.4 L Ur Specific [place] 1.033 H 01/13/19 01/14/19 01/14/19 08:19 05:20 05:20 WBC 11.7 H MCHC Lymph % (Auto) 10.9 L [place] % (Auto) 7.8 H Lymph # [place] # 0.9 H Seg Neutrophils % 80.3 H Seg Neutrophils # 9.4 H POC ABG pCO2 34.0 L POC ABG pO2 53 L Potassium 3.1 L BUN Creatinine 0.5 L Glucose 109 H Total Bilirubin AST Alkaline Phosphatase NT-Pro-B Natriuret Pep Albumin Ur Specific [place] 01/14/19 15:57 WBC MCHC Lymph % (Auto) [place] % (Auto) Lymph # [place] # Seg Neutrophils % Seg Neutrophils # POC ABG pCO2 31.8 L POC ABG pO2 59 L Potassium BUN Creatinine Glucose Total Bilirubin AST Alkaline Phosphatase NT-Pro-B Natriuret Pep Albumin Ur Specific [place] - Diagnostic Findings Chest x-ray: image reviewed CT scan - chest: image reviewed Assessment and Plan 73 y/o female with acute respiratory failure thought secondary to pulmonary edema as she missed several doses of lasix and possible COPD exacerbation. 1. Agree with IV BID lasix therapy 2. Ok with steroids for right now. 3. Will add Bipap therapy for now to help with oxygenation and work of breathing. 4. Agitation is likely secondary to Nicotine withdrawal. Will add patch and give PRN haldol 5. I did order a one time dose of Ativan but this should not be repeated. I asked nursing to call me if mental status changes 6. Will add BID pulmicort and brovana therapy.
[2019-01-14] MEDS: HABITROL TD SCH (19:34)
[2019-01-14] MEDS: BROVANA NEBU IH SCH (20:43)
[2019-01-14] MEDS: PULMICORT IH SCH (20:43)
[2019-01-15 07:53] LABS: BUN/Creatinine Ratio 40; Blood Urea Nitrogen 20 mg/dL (7-17); Calcium 9.4 mg/dL (8.4-10.2); Hemolysis Index 4
[2019-01-15] MEDS: DUONEB *Not for PRN Use IH SCH ×2 (07:57→14:22)
[2019-01-15] MEDS: PULMICORT IH SCH ×2 (07:57→20:07)
[2019-01-15] MEDS: BROVANA NEBU IH SCH ×2 (07:57→20:07)
--- NOTE | 2019-01-15 08:39 | Progress Note ---
Assessment and Plan Assessment and plan: Acute respiratory failure due to CHF exacerbation. Admitted to Telemetry Oxygen supplementation Pulmonology following Discussed with Dr. marlin Matias on chronic systolic CHF patient admits she missed 2 days of lasix Lasix iv bid Cardiology following Echo ordered COPD exacerbation Emphesema changes seen on CT chest Duoneb Start solu-medrol Fever,likely pneumonia Leukocytosis Bilateral pneumonia, possibly Blood cultures drawn Continue Ceftriaxone and Azithromycin Hypertension Monitor BP DVT prophylaxis. SCDs, Heparin Full code status History Interval history: Mild improvement less shortness of breath Fever improving Diarrhea-she complains of chronic diarrhea for years Hospitalist Physical - Physical exam Narrative exam: GEN: Not in acute respiratory distress, lying in bed, venti mask on HEENT: Normocephalic, atraumatic, Neck: supple, No JVD heart: S1 and S2 reg no murmurs, no gallop Lungs: Bilateral basal crackles , no wheeze Abd:soft, non tender, non distended, normal bowel sounds Ext: No edema,no clubbing, no cyanosis, Neuro:Awake,alert,oriented X 3, no focal signs, moves all ext Psych: normal mood - Constitutional Vitals: Temp Pulse Resp BP Pulse Ox 97.5 F L 65 18 143/63 95 01/15/19 05:33 01/15/19 05:33 01/15/19 05:33 01/15/19 05:33 01/15/19 05:33 General appearance: Present: other (SOB) Results - Labs CBC & Chem 7: 01/14/19 05:20 01/15/19 06:52 Labs: Laboratory Last Values WBC 11.7 K/mm3 (4.5-11.0) H 01/14/19 05:20 RBC 4.08 M/mm3 (3.65-5.03) 01/14/19 05:20 Hgb 13.2 gm/dl (10.1-14.3) 01/14/19 05:20 Hct 38.4 % (30.3-42.9) 01/14/19 05:20 MCV 94 fl (79-97) 01/14/19 05:20 MCH 32 pg (28-32) 01/14/19 05:20 MCHC 34 % (30-34) 01/14/19 05:20 RDW 14.1 % (13.2-15.2) 01/14/19 05:20 Plt Count 205 K/mm3 (140-440) 01/14/19 05:20 Lymph % (Auto) 10.9 % (13.4-35.0) L 01/14/19 05:20 [place] % (Auto) 7.8 % (0.0-7.3) H 01/14/19 05:20 Eos % (Auto) 0.8 % (0.0-4.3) 01/14/19 05:20 Baso % (Auto) 0.2 % (0.0-1.8) 01/14/19 05:20 Lymph # 1.3 K/mm3 (1.2-5.4) 01/14/19 05:20 [place] # 0.9 K/mm3 (0.0-0.8) H 01/14/19 05:20 Eos # 0.1 K/mm3 (0.0-0.4) 01/14/19 05:20 Baso # 0.0 K/mm3 (0.0-0.1) 01/14/19 05:20 Seg Neutrophils % 80.3 % (40.0-70.0) H 01/14/19 05:20 Seg Neutrophils # 9.4 K/mm3 (1.8-7.7) H 01/14/19 05:20 PT 14.3 Sec. (12.2-14.9) 01/13/19 07:35 INR 1.05 (0.87-1.13) 01/13/19 07:35 APTT 32.2 Sec. (24.2-36.6) 01/13/19 07:35 POC ABG pH 7.444 (7.35-7.45) 01/14/19 15:57 POC ABG pCO2 31.8 (35-45) L 01/14/19 15:57 POC ABG pO2 59 (80-105) L 01/14/19 15:57 POC ABG HCO3 21.8 (22-26 mml/L) 01/14/19 15:57 POC ABG Total CO2 23 (23-27mmol/L) 01/14/19 15:57 POC ABG O2 Sat 92 01/14/19 15:57 POC ABG Base Excess -2 ((-2) - (+3)mmol/L) 01/14/19 15:57 FiO2 40 % 01/14/19 15:57 Sodium 140 mmol/L (137-145) 01/15/19 06:52 Potassium 3.5 mmol/L (3.6-5.0) L 01/15/19 06:52 Chloride 101.2 mmol/L (98-107) 01/15/19 06:52 Carbon Dioxide 24 mmol/L (22-30) 01/15/19 06:52 Anion Gap 18 mmol/L 01/15/19 06:52 BUN 20 mg/dL (7-17) H 01/15/19 06:52 Creatinine 0.5 mg/dL (0.7-1.2) L 01/15/19 06:52 Estimated GFR > 60 ml/min 01/15/19 06:52 BUN/Creatinine Ratio 40 % 01/15/19 06:52 Glucose 167 mg/dL (65-100) H 01/15/19 06:52 Lactic Acid 1.40 mmol/L (0.7-2.0) 01/13/19 13:15 Calcium 9.4 mg/dL (8.4-10.2) 01/15/19 06:52 Magnesium 1.90 mg/dL (1.7-2.3) 01/15/19 06:52 Total Bilirubin 2.20 mg/dL (0.1-1.2) H 01/13/19 07:35 AST 43 units/L (5-40) H 01/13/19 07:35 ALT 30 units/L (7-56) 01/13/19 07:35 Alkaline Phosphatase 149 units/L (35-129) H 01/13/19 07:35 Troponin T 0.029 ng/mL (0.00-0.029) 01/13/19 07:35 NT-Pro-B Natriuret Pep 6541 pg/mL (0-900) H 01/13/19 07:35 Total Protein 6.4 g/dL (6.3-8.2) 01/13/19 07:35 Albumin 3.4 g/dL (3.9-5) L 01/13/19 07:35 Albumin/Globulin Ratio 1.1 % 01/13/19 07:35 Urine Color [place] (Yellow) 01/13/19 00:40 Urine Turbidity Clear (Clear) 01/13/19 00:40 Urine pH 6.0 (5.0-7.0) 01/13/19 00:40 Ur Specific [place] 1.033 (1.003-1.030) H 01/13/19 00:40 Urine Protein 30 mg/dl mg/dL (Negative) 01/13/19 00:40 Urine Glucose (UA) Neg mg/dL (Negative) 01/13/19 00:40 Urine Ketones Neg mg/dL (Negative) 01/13/19 00:40 Urine Blood Neg (Negative) 01/13/19 00:40 Urine Nitrite Neg (Negative) 01/13/19 00:40 Urine Bilirubin Neg (Negative) 01/13/19 00:40 Urine Urobilinogen 4.0 mg/dL (<2.0) 01/13/19 00:40 Ur Leukocyte Esterase Neg (Negative) 01/13/19 00:40 Urine WBC (Auto) 1.0 /HPF (0.0-6.0) 01/13/19 00:40 Urine RBC (Auto) 2.0 /HPF (0.0-6.0) 01/13/19 00:40 U Epithel Cells (Auto) 1.0 /HPF (0-13.0) 01/13/19 00:40 Active Medications - Current Medications Current Medications: Generic Name Dose Route Start Last Admin Trade Name Freq PRN Reason Stop Dose Admin Acetaminophen 650 mg 01/13/19 12:27 01/13/19 20:44 Tylenol PO 650 mg Q4H PRN Administration Pain MILD(1-3)/Fever >100.5/OTERO Albuterol 2.5 mg 01/13/19 12:27 Proventil IH Q4HRT PRN Shortness Of Breath Albuterol/Ipratropium 1 ampul 01/13/19 20:00 01/15/19 07:57 Duoneb *Not For Prn Use* IH 1 ampul TIDRT ARIELLA Administration Arformoterol Tartrate 15 mcg 01/14/19 20:00 01/15/19 07:57 Brovana Nebu IH 15 mcg Q12HRT ARIELLA Administration Atorvastatin Calcium 20 mg 01/13/19 22:00 01/14/19 21:00 Lipitor PO 20 mg QHS ARIELLA Administration Budesonide 0.5 mg 01/14/19 20:00 01/15/19 07:57 Pulmicort IH 0.5 mg Q12HRT ARIELLA Administration Famotidine 20 mg 01/13/19 15:00 01/14/19 21:00 Pepcid PO 20 mg BID ARIELLA Administration Furosemide 40 mg 01/13/19 18:00 01/14/19 17:10 Lasix IV 40 mg BID@0600,1800 ARIELLA Administration Haloperidol Lactate 5 mg 01/14/19 17:26 01/14/19 17:52 Haldol IV 5 mg Q6H PRN Administration Agitation Heparin Sodium (Porcine) 5,000 unit 01/15/19 06:00 Heparin SUB-Q Q8HR ARIELLA Azithromycin 500 mg/ Sodium 250 mls @ 250 mls/hr 01/14/19 10:00 01/14/19 11:55 Chloride IV 250 mls/hr Q24HR ARIELLA Administration Ceftriaxone Sodium 2 gm in 100 mls @ 200 mls/hr 01/14/19 10:00 01/14/19 10:59 Rocephin/Ns 2 Gm/100 Ml IV 200 mls/hr Q24HR ARIELLA Administration Protocol Lisinopril 10 mg 01/14/19 10:00 01/14/19 10:58 Zestril PO 10 mg QDAY ARIELLA Administration Metoprolol Tartrate 25 mg 01/13/19 22:00 01/14/19 21:00 Lopressor PO 25 mg BID ARIELLA Administration Morphine Sulfate 2 mg 01/13/19 12:27 Morphine IV Q4H PRN Pain, Moderate (4-6) Nicotine 21 mg 01/14/19 18:30 01/14/19 19:34 Habitrol TD 21 mg QDAY ARIELLA Administration Nitroglycerin 0.4 mg 01/13/19 13:34 Nitrostat SL .Q5MIN PRN Chest Pain Ondansetron HCl 4 mg 01/13/19 12:27 Zofran IV Q8H PRN Nausea And Vomiting Oxybutynin Chloride 5 mg 01/13/19 15:00 01/14/19 10:57 Ditropan Xl PO 5 mg DAILY ARIELLA Administration Paroxetine HCl 40 mg 01/14/19 10:00 01/14/19 10:57 Paxil PO 40 mg DAILY ARIELLA Administration Sodium Chloride 10 ml 01/13/19 22:00 01/14/19 21:00 Sodium Chloride Flush Syringe 10 Ml IV 10 ml BID ARIELLA Administration Sodium Chloride 10 ml 01/13/19 12:27 Sodium Chloride Flush Syringe 10 Ml IV PRN PRN LINE FLUSH Nutrition/Malnutrition Assess - Dietary Evaluation Nutrition/Malnutrition Findings: Nutrition Notes Start: 01/14/19 11:39 Freq: Status: Active Protocol: Document 01/14/19 11:39 RD (Rec: 01/14/19 12:00 RD [email or web address]) Co-Sign 01/14/19 11:39 LP Nutrition Notes 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 Pt states she is not eating well and has a poor appetite and weakness. Pt only eating a few bites of meals. Pt states she cannot eat well with oxygen mask on. Pt reports she has difficulty swallowing, not chewing. Pt reports only eating bites of food for several days. Pt willing to try supplemental nutrition drink. Pt requests softer foods. Pt reports wt loss of 30 lbs since November. Observed muscle depletion and fat depletion. Percent of energy/protein needs met: 0%/0% Burn Absent Trauma Absent Minimum of two criteria Yes Energy Intake (severe) < or equal to 50% Estimated Energy Requirement > or equal to 5 days Interpretation of Weight Loss (severe) >5% in 1 month Body Fat Depletion Moderate depletion (severe) Muscle Mass Moderate Depletion (severe) #2 Nutrition Diagnosis Malnutrition Etiology Weakness, decreased appetite As Evidenced by Signs and Symptoms Eating less than 50% of meals for 5 days, muscle depletion, fat depletion, 17.8% wt. loss in 1 month #1 Nutrition Diagnosis Inadequate oral intake Etiology Poor appetite As Evidenced by Signs and Symptoms Eating less than 25% of meals Is patient on ventilator? No Is Patient Ambulatory and/or Out of Bed Yes REE-(Coos-St. Jeor-ambulatory/OOB) [ 1437.215 [id number]] Calculation Used for Recommendations [place]-St Jeor Additional Notes Protein needs: (1.2-1.5g/kg) 74-111g/day Fluid needs: 1mL/kcal Nutrition Intervention Change Diet Order: Mech Soft/ Cardiac Add Supplement/Snack (indicate name/kcal Ensure Enlive BID /protein ) Provides kCal: 700 Provides Protein (gm) 40 Goal #1 Meet at least 75% of nutrient needs Anticipated Discharge Needs: Unable to determine at this time Follow-Up By: 01/16/19 Additional Comments f/u: PO and ONS intakes
[2019-01-15] MEDS: ROCEPHIN/NS 2 GM/100 ML 2 GM/100 ML BAG IV SCH (10:53)
[2019-01-15] MEDS: HABITROL TD SCH (10:53)
[2019-01-15] MEDS: PAXIL PO SCH (10:53)
[2019-01-15] MEDS: LOPRESSOR PO SCH ×2 (10:54→21:50)
[2019-01-15] MEDS: DITROPAN XL PO SCH (10:54)
[2019-01-15] MEDS: ZITHROMAX 500 MG in NACL 0.9% 250ML 250 ML IV SCH (10:54)
[2019-01-15] MEDS: ZESTRIL PO SCH (10:54)
[2019-01-15] MEDS: SODIUM CHLORIDE FLUSH SYRINGE 10 ML IV SCH ×2 (10:58→21:58)
[2019-01-15] MEDS: PEPCID PO SCH ×2 (10:59→21:51)
[2019-01-15] MEDS ORDERED: IMODIUM PO PRN (11:00)
--- NOTE | 2019-01-15 13:09 | Progress Note ---
Assessment and Plan Pt appears to be clinically improving. Cont GDMT and IV diuresis as tolerated. Replete electrolytes PRN. Await echo. Attempt to obtain medical records from [place]. Pulmonary recs noted - pt with some underlying COPD maybe some ILD, steroids initiated. The patient has been seen in conjunction with Dr. Sayra Machuca who agrees with the assessment and plan of care. - Patient Problems (1) Acute heart failure Current Visit: Yes Status: Acute (2) Acute respiratory failure Current Visit: Yes Status: Acute (3) Pulmonary edema Current Visit: Yes Status: Acute (4) History of cardiomyopathy Current Visit: Yes Status: Chronic (5) HTN (hypertension) Current Visit: Yes Status: Chronic (6) Hyperlipidemia Current Visit: Yes Status: Chronic (7) COPD (chronic obstructive pulmonary disease) Current Visit: Yes Status: Chronic (8) Tobacco use Current Visit: Yes Status: Chronic (9) Alcohol use Current Visit: Yes Status: Chronic Subjective Date of service: 01/15/19 Principal diagnosis: HF Interval history: pt resting in bed, alert and states she is feeling much better today. On O2 via nasal cannula. Objective Last Vital Signs Temp 98.3 F 01/15/19 12:08 Pulse 76 01/15/19 12:08 Resp 17 01/15/19 12:08 BP 153/77 01/15/19 12:08 Pulse Ox 92 01/15/19 12:08 - Physical Examination General: No Apparent Distress HEENT: Positive: PERRL Neck: Positive: neck supple, trachea midline Cardiac: Positive: Reg Rate and Rhythm, S1/S2 Lungs: Positive: Decreased Breath Sounds, Rales Neuro: Positive: Grossly Intact Abdomen: Positive: Soft. Negative: Tender Skin: Negative: Rash Musculoskeletal: No Pain Extremities: Absent: edema - Labs and Meds Comprehensive Metabolic Panel 01/15/19 Range/Units 06:52 Sodium 140 (137-145) mmol/L Potassium 3.5 L (3.6-5.0) mmol/L Chloride 101.2 (98-107) mmol/L Carbon Dioxide 24 (22-30) mmol/L BUN 20 H (7-17) mg/dL Creatinine 0.5 L (0.7-1.2) mg/dL Glucose 167 H (65-100) mg/dL Calcium 9.4 (8.4-10.2) mg/dL - Imaging and Cardiology EKG: report reviewed, image reviewed Echo: pending - Telemetry EKG Rhythm: Sinus Rhythm - EKG Sinus rhythms and dysrhythmias: sinus rhythm AV and intraventricular conduction: right bundle branch block
[2019-01-15] MEDS ORDERED: XOPENEX IH ONE (13:28)
[2019-01-15] MEDS ORDERED: XOPENEX IH PRN (14:13)
--- NOTE | 2019-01-15 14:51 | Progress Note ---
Assessment and Plan 73 y/o female with acute respiratory failure thought secondary to pulmonary edema as she missed several doses of lasix and possible COPD exacerbation. 1. Agree with IV BID lasix therapy, should continue with goal of daily net negative state 2. Stopped steroids as I think it heightened anxiety level. Stable for now. Will leave off. 3. Keep bipap available PRN 4. Continue nicotine patch 5. COntinue BID pulmicort and brovana but would not discharge on these 6. Patient may need oxygen at discharge but should continue diuresis as tolerated. 7. Follow up echo report. Subjective Date of service: 01/15/19 Principal diagnosis: HF Interval history: No acute events. Feels much better today. SAt is 93 on 5 liters. Sister at bedside. Objective Vital Signs - 12hr 01/15/19 01/15/19 01/15/19 05:33 08:00 08:10 Temperature 97.5 F L Pulse Rate 65 Pulse Rate [ 76 77 Bilateral] Respiratory 18 Rate Respiratory 18 18 Rate [Bilateral ] Blood Pressure 143/63 O2 Sat by Pulse 95 Oximetry 01/15/19 01/15/19 01/15/19 08:30 10:00 10:54 Temperature 97.6 F Pulse Rate 77 77 Pulse Rate [ Bilateral] Respiratory 24 Rate Respiratory Rate [Bilateral ] Blood Pressure 133/62 133/62 O2 Sat by Pulse 95 93 Oximetry 01/15/19 01/15/19 01/15/19 12:08 14:10 14:20 Temperature 98.3 F Pulse Rate 76 Pulse Rate [ 76 77 Bilateral] Respiratory 17 Rate Respiratory 18 18 Rate [Bilateral ] Blood Pressure 153/77 O2 Sat by Pulse 92 Oximetry Constitutional: no acute distress, alert Eyes: non-icteric ENT: oropharynx moist Neck: supple Ascultation: Bilateral: rales Cardiovascular: regular rate and rhythm Gastrointestinal: normoactive bowel sounds Integumentary: normal Extremities: no cyanosis Neurologic: normal mental status, non-focal exam Psychiatric: mood appropriate, affect normal CBC and BMP: 01/14/19 05:20 01/15/19 06:52 ABG, PT/INR, D-dimer: ABG POC ABG pH 7.444 (7.35-7.45) 01/14/19 15:57 POC ABG pCO2 31.8 (35-45) L 01/14/19 15:57 POC ABG pO2 59 (80-105) L 01/14/19 15:57 POC ABG HCO3 21.8 (22-26 mml/L) 01/14/19 15:57 POC ABG Total CO2 23 (23-27mmol/L) 01/14/19 15:57 POC ABG O2 Sat 92 01/14/19 15:57 PT/INR, D-dimer PT 14.3 Sec. (12.2-14.9) 01/13/19 07:35 INR 1.05 (0.87-1.13) 01/13/19 07:35 Abnormal lab findings: Abnormal Labs 01/13/19 01/13/19 01/13/19 00:40 07:34 07:35 WBC 13.0 H MCHC 35 H Lymph % (Auto) 7.4 L [place] % (Auto) Lymph # 1.0 L [place] # 0.9 H Seg Neutrophils % 85.1 H Seg Neutrophils # 11.1 H POC ABG pCO2 POC ABG pO2 Potassium 3.4 L BUN 22 H Creatinine Glucose 120 H Total Bilirubin 2.20 H AST 43 H Alkaline Phosphatase 149 H NT-Pro-B Natriuret Pep 6541 H Albumin 3.4 L Ur Specific [place] 1.033 H 01/13/19 01/14/19 01/14/19 08:19 05:20 05:20 WBC 11.7 H MCHC Lymph % (Auto) 10.9 L [place] % (Auto) 7.8 H Lymph # [place] # 0.9 H Seg Neutrophils % 80.3 H Seg Neutrophils # 9.4 H POC ABG pCO2 34.0 L POC ABG pO2 53 L Potassium 3.1 L BUN Creatinine 0.5 L Glucose 109 H Total Bilirubin AST Alkaline Phosphatase NT-Pro-B Natriuret Pep Albumin Ur Specific [place] 01/14/19 01/15/19 15:57 06:52 WBC MCHC Lymph % (Auto) [place] % (Auto) Lymph # [place] # Seg Neutrophils % Seg Neutrophils # POC ABG pCO2 31.8 L POC ABG pO2 59 L Potassium 3.5 L BUN 20 H Creatinine 0.5 L Glucose 167 H Total Bilirubin AST Alkaline Phosphatase NT-Pro-B Natriuret Pep Albumin Ur Specific [place]
[2019-01-15] MEDS: LASIX IV SCH ×2 (18:49→20:08)
[2019-01-15] MEDS: TYLENOL PO PRN (18:51)
[2019-01-15] MEDS: HEPARIN SUB-Q SCH ×3 (18:52→21:51)
[2019-01-15] MEDS: ATROVENT IH SCH (20:07)
[2019-01-15] MEDS: XOPENEX IH SCH (20:40)
[2019-01-15] MEDS: K-DUR PO SCH (21:40)
[2019-01-16] MEDS: HEPARIN SUB-Q SCH ×3 (05:38→21:42)
[2019-01-16] MEDS: LASIX IV SCH ×2 (05:38→18:21)
[2019-01-16 06:35] LABS: Hemoglobin 12.7 gm/dl (10.1-14.3); Mean Corpuscular HGB Conc 34 % (30-34); Mean Corpuscular Volume 93 fl (79-97); Platelet Count 277 K/mm3 (140-440); Red Blood Count 3.99 M/mm3 (3.65-5.03); Red Cell Distribution Width 14.3 % (13.2-15.2)
[2019-01-16 07:05] LABS: BUN/Creatinine Ratio 52; Blood Urea Nitrogen 26 mg/dL (7-17); Calcium 9.4 mg/dL (8.4-10.2); Hemolysis Index 3
[2019-01-16] MEDS: BROVANA NEBU IH SCH ×2 (08:55→21:09)
[2019-01-16] MEDS: ATROVENT IH SCH ×3 (08:55→21:09)
[2019-01-16] MEDS: XOPENEX IH SCH ×3 (08:55→21:09)
[2019-01-16] MEDS: PULMICORT IH SCH ×2 (08:55→21:09)
[2019-01-16] MEDS: PAXIL PO SCH (11:42)
[2019-01-16] MEDS: K-DUR PO SCH ×2 (11:43→18:21)
[2019-01-16] MEDS: PEPCID PO SCH ×2 (11:44→21:42)
[2019-01-16] MEDS: LOPRESSOR PO SCH ×2 (11:44→21:42)
[2019-01-16] MEDS: ZESTRIL PO SCH (11:45)
[2019-01-16] MEDS: DITROPAN XL PO SCH (11:46)
[2019-01-16] MEDS: SODIUM CHLORIDE FLUSH SYRINGE 10 ML IV SCH ×2 (11:47→21:52)
[2019-01-16] MEDS: HABITROL TD SCH (11:48)
[2019-01-16] MEDS: ROCEPHIN/NS 2 GM/100 ML 2 GM/100 ML BAG IV SCH (11:48)
--- NOTE | 2019-01-16 11:49 | Progress Note ---
Subjective Date of service: 01/16/19 Principal diagnosis: HF Interval history: No acute events overnight. Down to 5 liters nc with good sats. Objective Vital Signs - 12hr 01/16/19 01/16/19 01/16/19 04:16 09:23 09:41 Temperature 97.7 F Pulse Rate 64 63 Pulse Rate [ 69 Bilateral] Respiratory 14 22 Rate Respiratory 18 Rate [Bilateral ] Blood Pressure 153/79 148/70 O2 Sat by Pulse 92 96 95 Oximetry 01/16/19 01/16/19 09:43 09:47 Temperature 97.5 F L Pulse Rate Pulse Rate [ 70 Bilateral] Respiratory Rate Respiratory 118 H Rate [Bilateral ] Blood Pressure O2 Sat by Pulse Oximetry Constitutional: no acute distress, alert Eyes: non-icteric ENT: oropharynx moist Neck: supple Ascultation: Bilateral: rales Cardiovascular: regular rate and rhythm Gastrointestinal: normoactive bowel sounds Integumentary: normal Extremities: no cyanosis Neurologic: normal mental status, non-focal exam Psychiatric: mood appropriate, affect normal CBC and BMP: 01/16/19 05:05 01/16/19 05:05 ABG, PT/INR, D-dimer: ABG POC ABG pH 7.444 (7.35-7.45) 01/14/19 15:57 POC ABG pCO2 31.8 (35-45) L 01/14/19 15:57 POC ABG pO2 59 (80-105) L 01/14/19 15:57 POC ABG HCO3 21.8 (22-26 mml/L) 01/14/19 15:57 POC ABG Total CO2 23 (23-27mmol/L) 01/14/19 15:57 POC ABG O2 Sat 92 01/14/19 15:57 PT/INR, D-dimer PT 14.3 Sec. (12.2-14.9) 01/13/19 07:35 INR 1.05 (0.87-1.13) 01/13/19 07:35 Abnormal lab findings: Abnormal Labs 01/13/19 01/13/19 01/13/19 00:40 07:34 07:35 WBC 13.0 H MCHC 35 H Lymph % (Auto) 7.4 L [place] % (Auto) Lymph # 1.0 L [place] # 0.9 H Seg Neutrophils % 85.1 H Seg Neutrophils # 11.1 H POC ABG pCO2 POC ABG pO2 Potassium 3.4 L BUN 22 H Creatinine Glucose 120 H Total Bilirubin 2.20 H AST 43 H Alkaline Phosphatase 149 H NT-Pro-B Natriuret Pep 6541 H Albumin 3.4 L Ur Specific [place] 1.033 H 01/13/19 01/14/19 01/14/19 08:19 05:20 05:20 WBC 11.7 H MCHC Lymph % (Auto) 10.9 L [place] % (Auto) 7.8 H Lymph # [place] # 0.9 H Seg Neutrophils % 80.3 H Seg Neutrophils # 9.4 H POC ABG pCO2 34.0 L POC ABG pO2 53 L Potassium 3.1 L BUN Creatinine 0.5 L Glucose 109 H Total Bilirubin AST Alkaline Phosphatase NT-Pro-B Natriuret Pep Albumin Ur Specific [place] 01/14/19 01/15/19 01/16/19 15:57 06:52 05:05 WBC 12.0 H MCHC Lymph % (Auto) [place] % (Auto) Lymph # [place] # Seg Neutrophils % Seg Neutrophils # POC ABG pCO2 31.8 L POC ABG pO2 59 L Potassium 3.5 L BUN 20 H Creatinine 0.5 L Glucose 167 H Total Bilirubin AST Alkaline Phosphatase NT-Pro-B Natriuret Pep Albumin Ur Specific [place] 01/16/19 05:05 WBC MCHC Lymph % (Auto) [place] % (Auto) Lymph # [place] # Seg Neutrophils % Seg Neutrophils # POC ABG pCO2 POC ABG pO2 Potassium 3.2 L BUN 26 H Creatinine 0.5 L Glucose 120 H Total Bilirubin AST Alkaline Phosphatase NT-Pro-B Natriuret Pep Albumin Ur Specific [place]
[2019-01-16] MEDS: TYLENOL PO PRN ×2 (12:20→21:42)
[2019-01-16] MEDS: ZITHROMAX 500 MG in NACL 0.9% 250ML 250 ML IV SCH (12:24)
--- NOTE | 2019-01-16 12:27 | Progress Note ---
Assessment and Plan Patient is gradually improving. Discussed with Dr. Sun. Patient is advised to increase her activity in the room. We will review the echo once it is done. - Patient Problems (1) HTN (hypertension) Current Visit: Yes Status: Chronic (2) History of cardiomyopathy Current Visit: Yes Status: Chronic (3) Hyperlipidemia Current Visit: Yes Status: Chronic Subjective Date of service: 01/16/19 Principal diagnosis: HF Interval history: Patient is feeling significantly better. She still complains about general weakness. No chest pain. Mild difficulty in breathing is noted. Case discussed with Dr. Sun Objective Vital Signs Temp Pulse Pulse Resp Resp BP Pulse Ox 01/16/19 09:47 70 118 H 01/16/19 09:43 97.5 F L 01/16/19 09:41 63 22 148/70 95 01/16/19 09:23 69 18 96 01/16/19 04:16 97.7 F 64 14 153/79 92 01/15/19 23:11 98.3 F 67 14 136/69 94 01/15/19 22:00 74 18 01/15/19 20:21 94 01/15/19 20:20 72 16 01/15/19 20:08 74 16 01/15/19 19:43 97.7 F 75 16 143/71 94 01/15/19 15:35 98.5 F 74 24 151/73 88 01/15/19 14:20 77 18 01/15/19 14:10 76 18 - Physical Examination General: No Apparent Distress HEENT: Positive: PERRL Neck: Positive: neck supple, trachea midline Cardiac: Positive: Regular Rate Lungs: Positive: clear to auscultation Neuro: Positive: Grossly Intact Abdomen: Positive: Soft. Negative: Tender Skin: Negative: Rash Musculoskeletal: No Pain Extremities: Present: normal. Absent: edema - Labs and Meds CBC 01/16/19 Range/Units 05:05 WBC 12.0 H (4.5-11.0) K/mm3 RBC 3.99 (3.65-5.03) M/mm3 Hgb 12.7 (10.1-14.3) gm/dl Hct 37.0 (30.3-42.9) % Plt Count 277 (140-440) K/mm3 Comprehensive Metabolic Panel 01/16/19 Range/Units 05:05 Sodium 144 (137-145) mmol/L Potassium 3.2 L (3.6-5.0) mmol/L Chloride 105.3 (98-107) mmol/L Carbon Dioxide 24 (22-30) mmol/L BUN 26 H (7-17) mg/dL Creatinine 0.5 L (0.7-1.2) mg/dL Glucose 120 H (65-100) mg/dL Calcium 9.4 (8.4-10.2) mg/dL - Imaging and Cardiology EKG: report reviewed, image reviewed Echo: pending - EKG Sinus rhythms and dysrhythmias: sinus rhythm AV and intraventricular conduction: right bundle branch block
--- NOTE | 2019-01-16 13:14 | Progress Note ---
Assessment and Plan Assessment and plan: Acute respiratory failure due to CHF exacerbation. Admitted to Telemetry Oxygen supplementation Pulmonology following Discussed with Dr. Dino Matias on chronic systolic CHF Patient admits she missed 2 days of lasix Cont Lasix iv bid Cardiology following Echo report pending COPD exacerbation Emphesema changes seen on CT chest Duoneb Albuterol prn Fever,likely pneumonia Leukocytosis Bilateral pneumonia, possibly Blood cultures drawn Continue Ceftriaxone and Azithromycin Chronic diarrhea intermittent for years. Give Imodium. Hypertension Monitor BP DVT prophylaxis. SCDs, Heparin Full code status History Interval history: Feels much better less shortness of breath No more fever Diarrhea-she complains of chronic diarrhea for years Hospitalist Physical - Physical exam Narrative exam: GEN: Not in acute respiratory distress, lying in bed, venti mask on HEENT: Normocephalic, atraumatic, Neck: supple, No JVD heart: S1 and S2 reg no murmurs, no gallop Lungs: Bilateral basal crackles , no wheeze Abd:soft, non tender, non distended, normal bowel sounds Ext: No edema,no clubbing, no cyanosis, Neuro:Awake,alert,oriented X 3, no focal signs, moves all ext Psych: normal mood - Constitutional Vitals: Temp Pulse Resp BP Pulse Ox 97.4 F L 66 18 136/56 99 01/16/19 12:56 01/16/19 12:57 01/16/19 12:57 01/16/19 12:57 01/16/19 12:57 General appearance: Present: other (SOB) Results - Labs CBC & Chem 7: 01/16/19 05:05 01/16/19 05:05 Labs: Laboratory Last Values WBC 12.0 K/mm3 (4.5-11.0) H 01/16/19 05:05 RBC 3.99 M/mm3 (3.65-5.03) 01/16/19 05:05 Hgb 12.7 gm/dl (10.1-14.3) 01/16/19 05:05 Hct 37.0 % (30.3-42.9) 01/16/19 05:05 MCV 93 fl (79-97) 01/16/19 05:05 MCH 32 pg (28-32) 01/16/19 05:05 MCHC 34 % (30-34) 01/16/19 05:05 RDW 14.3 % (13.2-15.2) 01/16/19 05:05 Plt Count 277 K/mm3 (140-440) 01/16/19 05:05 Lymph % (Auto) 10.9 % (13.4-35.0) L 01/14/19 05:20 [place] % (Auto) 7.8 % (0.0-7.3) H 01/14/19 05:20 Eos % (Auto) 0.8 % (0.0-4.3) 01/14/19 05:20 Baso % (Auto) 0.2 % (0.0-1.8) 01/14/19 05:20 Lymph # 1.3 K/mm3 (1.2-5.4) 01/14/19 05:20 [place] # 0.9 K/mm3 (0.0-0.8) H 01/14/19 05:20 Eos # 0.1 K/mm3 (0.0-0.4) 01/14/19 05:20 Baso # 0.0 K/mm3 (0.0-0.1) 01/14/19 05:20 Seg Neutrophils % 80.3 % (40.0-70.0) H 01/14/19 05:20 Seg Neutrophils # 9.4 K/mm3 (1.8-7.7) H 01/14/19 05:20 PT 14.3 Sec. (12.2-14.9) 01/13/19 07:35 INR 1.05 (0.87-1.13) 01/13/19 07:35 APTT 32.2 Sec. (24.2-36.6) 01/13/19 07:35 POC ABG pH 7.444 (7.35-7.45) 01/14/19 15:57 POC ABG pCO2 31.8 (35-45) L 01/14/19 15:57 POC ABG pO2 59 (80-105) L 01/14/19 15:57 POC ABG HCO3 21.8 (22-26 mml/L) 01/14/19 15:57 POC ABG Total CO2 23 (23-27mmol/L) 01/14/19 15:57 POC ABG O2 Sat 92 01/14/19 15:57 POC ABG Base Excess -2 ((-2) - (+3)mmol/L) 01/14/19 15:57 FiO2 40 % 01/14/19 15:57 Sodium 144 mmol/L (137-145) 01/16/19 05:05 Potassium 3.2 mmol/L (3.6-5.0) L 01/16/19 05:05 Chloride 105.3 mmol/L (98-107) 01/16/19 05:05 Carbon Dioxide 24 mmol/L (22-30) 01/16/19 05:05 Anion Gap 18 mmol/L 01/16/19 05:05 BUN 26 mg/dL (7-17) H 01/16/19 05:05 Creatinine 0.5 mg/dL (0.7-1.2) L 01/16/19 05:05 Estimated GFR > 60 ml/min 01/16/19 05:05 BUN/Creatinine Ratio 52 % 01/16/19 05:05 Glucose 120 mg/dL (65-100) H 01/16/19 05:05 Lactic Acid 1.40 mmol/L (0.7-2.0) 01/13/19 13:15 Calcium 9.4 mg/dL (8.4-10.2) 01/16/19 05:05 Magnesium 1.90 mg/dL (1.7-2.3) 01/15/19 06:52 Total Bilirubin 2.20 mg/dL (0.1-1.2) H 01/13/19 07:35 AST 43 units/L (5-40) H 01/13/19 07:35 ALT 30 units/L (7-56) 01/13/19 07:35 Alkaline Phosphatase 149 units/L (35-129) H 01/13/19 07:35 Troponin T 0.029 ng/mL (0.00-0.029) 01/13/19 07:35 NT-Pro-B Natriuret Pep 6541 pg/mL (0-900) H 01/13/19 07:35 Total Protein 6.4 g/dL (6.3-8.2) 01/13/19 07:35 Albumin 3.4 g/dL (3.9-5) L 01/13/19 07:35 Albumin/Globulin Ratio 1.1 % 01/13/19 07:35 Urine Color [place]iel[place] (Yellow) 01/13/19 00:40 Urine Turbidity Clear (Clear) 01/13/19 00:40 Urine pH 6.0 (5.0-7.0) 01/13/19 00:40 Ur Specific [place] 1.033 (1.003-1.030) H 01/13/19 00:40 Urine Protein 30 mg/dl mg/dL (Negative) 01/13/19 00:40 Urine Glucose (UA) Neg mg/dL (Negative) 01/13/19 00:40 Urine Ketones Neg mg/dL (Negative) 01/13/19 00:40 Urine Blood Neg (Negative) 01/13/19 00:40 Urine Nitrite Neg (Negative) 01/13/19 00:40 Urine Bilirubin Neg (Negative) 01/13/19 00:40 Urine Urobilinogen 4.0 mg/dL (<2.0) 01/13/19 00:40 Ur Leukocyte Esterase Neg (Negative) 01/13/19 00:40 Urine WBC (Auto) 1.0 /HPF (0.0-6.0) 01/13/19 00:40 Urine RBC (Auto) 2.0 /HPF (0.0-6.0) 01/13/19 00:40 U Epithel Cells (Auto) 1.0 /HPF (0-13.0) 01/13/19 00:40 Active Medications - Current Medications Current Medications: Generic Name Dose Route Start Last Admin Trade Name Freq PRN Reason Stop Dose Admin Acetaminophen 650 mg 01/13/19 12:27 01/16/19 12:20 Tylenol PO 650 mg Q4H PRN Administration Pain MILD(1-3)/Fever >100.5/OTERO Arformoterol Tartrate 15 mcg 01/14/19 20:00 01/16/19 08:55 Brovana Nebu IH 15 mcg Q12HRT ARIELLA Administration Atorvastatin Calcium 20 mg 01/13/19 22:00 01/15/19 21:51 Lipitor PO 20 mg QHS ARIELLA Administration Azithromycin 500 mg 01/17/19 10:00 Zithromax PO QDAY ARIELLA Budesonide 0.5 mg 01/14/19 20:00 01/16/19 08:55 Pulmicort IH 0.5 mg Q12HRT ARIELLA Administration Famotidine 20 mg 01/13/19 15:00 01/16/19 11:44 Pepcid PO 20 mg BID ARIELLA Administration Furosemide 40 mg 01/13/19 18:00 01/16/19 05:38 Lasix IV 40 mg BID@0600,1800 ARIELLA Administration Haloperidol Lactate 5 mg 01/14/19 17:26 01/14/19 17:52 Haldol IV 5 mg Q6H PRN Administration Agitation Heparin Sodium (Porcine) 5,000 unit 01/15/19 06:00 01/16/19 05:38 Heparin SUB-Q 5,000 unit Q8HR ARIELLA Administration Ceftriaxone Sodium 2 gm in 100 mls @ 200 mls/hr 01/14/19 10:00 01/16/19 11:48 Rocephin/Ns 2 Gm/100 Ml IV 200 mls/hr Q24HR ARIELLA Administration Protocol Ipratropium [place] 0.5 mg 01/15/19 20:00 01/16/19 08:55 Atrovent IH 0.5 mg TIDRT ARIELLA Administration Levalbuterol HCl 0.63 mg 01/15/19 20:00 01/16/19 08:55 Xopenex IH 0.63 mg TIDRT ARIELLA Administration Lisinopril 10 mg 01/14/19 10:00 01/16/19 11:45 Zestril PO 10 mg QDAY [facility] Administration Loperamide HCl 2 mg 01/15/19 11:00 Imodium PO Q2H PRN Diarrhea Metoprolol Tartrate 25 mg 01/13/19 22:00 01/16/19 11:44 Lopressor PO 25 mg BID ARIELLA Administration Morphine Sulfate 2 mg 01/13/19 12:27 Morphine IV Q4H PRN Pain, Moderate (4-6) Nicotine 21 mg 01/14/19 18:30 01/16/19 11:48 Habitrol TD 21 mg QDAY [facility] Administration Nitroglycerin 0.4 mg 01/13/19 13:34 Nitrostat SL .Q5MIN PRN Chest Pain Ondansetron HCl 4 mg 01/13/19 12:27 Zofran IV Q8H PRN Nausea And Vomiting Oxybutynin Chloride 5 mg 01/13/19 15:00 01/16/19 11:46 Ditropan Xl PO 5 mg DAILY [facility] Administration Paroxetine HCl 40 mg 01/14/19 10:00 01/16/19 11:42 Paxil PO 40 mg DAILY ARIELLA Administration Sodium Chloride 10 ml 01/13/19 22:00 01/16/19 11:47 Sodium Chloride Flush Syringe 10 Ml IV 10 ml BID ARIELLA Administration Sodium Chloride 10 ml 01/13/19 12:27 Sodium Chloride Flush Syringe 10 Ml IV PRN PRN LINE FLUSH Nutrition/Malnutrition Assess - Dietary Evaluation Nutrition/Malnutrition Findings: Nutrition Notes Start: 01/14/19 11:39 Freq: Status: Active Protocol: Document 01/14/19 11:39 RD (Rec: 01/14/19 12:00 RD [email or web address]) Co-Sign 01/14/19 11:39 LP Nutrition Notes 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 Pt states she is not eating well and has a poor appetite and weakness. Pt only eating a few bites of meals. Pt states she cannot eat well with oxygen mask on. Pt reports she has difficulty swallowing, not chewing. Pt reports only eating bites of food for several days. Pt willing to try supplemental nutrition drink. Pt requests softer foods. Pt reports wt loss of 30 lbs since November. Observed muscle depletion and fat depletion. Percent of energy/protein needs met: 0%/0% Burn Absent Trauma Absent Minimum of two criteria Yes Energy Intake (severe) < or equal to 50% Estimated Energy Requirement > or equal to 5 days Interpretation of Weight Loss (severe) >5% in 1 month Body Fat Depletion Moderate depletion (severe) Muscle Mass Moderate Depletion (severe) #2 Nutrition Diagnosis Malnutrition Etiology Weakness, decreased appetite As Evidenced by Signs and Symptoms Eating less than 50% of meals for 5 days, muscle depletion, fat depletion, 17.8% wt. loss in 1 month #1 Nutrition Diagnosis Inadequate oral intake Etiology Poor appetite As Evidenced by Signs and Symptoms Eating less than 25% of meals Is patient on ventilator? No Is Patient Ambulatory and/or Out of Bed Yes REE-([place] or-ambulatory/OOB) [ 1437.215 NUTR.MSJOOB] Calculation Used for Recommendations [facility] Additional Notes Protein needs: (1.2-1.5g/kg) 74-111g/day Fluid needs: 1mL/kcal Nutrition Intervention Change Diet Order: [facility] Soft/ Cardiac Add Supplement/Snack (indicate name/kcal Ensure Enlive BID /protein ) Provides kCal: 700 Provides Protein (gm) 40 Goal #1 Meet at least 75% of nutrient needs Anticipated Discharge Needs: Unable to determine at this time Follow-Up By: 01/16/19 Additional Comments f/u: PO and ONS intakes
[2019-01-16] MEDS ORDERED: K-DUR PO SCH (18:00)
[2019-01-16] MEDS: RESTORIL PO PRN (21:42)
[2019-01-17 05:27] LABS: Hematocrit 39.2 % (30.3-42.9); Hemoglobin 13.7 gm/dl (10.1-14.3); Mean Corpuscular HGB Conc 35 % (30-34); Mean Corpuscular Volume 93 fl (79-97); Platelet Count 272 K/mm3 (140-440); Red Blood Count 4.22 M/mm3 (3.65-5.03); Red Cell Distribution Width 14.2 % (13.2-15.2)
[2019-01-17 05:50] LABS: BUN/Creatinine Ratio 50; Blood Urea Nitrogen 25 mg/dL (7-17); Calcium 9.2 mg/dL (8.4-10.2); Hemolysis Index 15
[2019-01-17] MEDS: HEPARIN SUB-Q SCH ×3 (06:04→22:07)
[2019-01-17] MEDS: LASIX IV SCH ×2 (06:04→18:08)
[2019-01-17] MEDS: XOPENEX IH SCH ×3 (08:37→21:24)
[2019-01-17] MEDS: ATROVENT IH SCH ×3 (08:37→21:24)
[2019-01-17] MEDS: PULMICORT IH SCH ×2 (08:37→21:24)
[2019-01-17] MEDS: BROVANA NEBU IH SCH ×2 (08:38→21:24)
--- NOTE | 2019-01-17 10:08 | Progress Note ---
Assessment and Plan Patient is gradually improving. Echocardiogram reviewed. Ejection fraction is 45-50%. No significant valvular heart disease is noted. Patient is gradually improving and will continue current management. - Patient Problems (1) HTN (hypertension) Current Visit: Yes Status: Chronic (2) History of cardiomyopathy Current Visit: Yes Status: Chronic (3) Hyperlipidemia Current Visit: Yes Status: Chronic Subjective Date of service: 01/17/19 Principal diagnosis: HF Interval history: Patient is feeling some better she is ambulating in the room. Denies chest pain. Dyspnea is improving Objective Vital Signs Temp Pulse Pulse Resp Resp BP Pulse Ox 01/17/19 08:46 98.1 F 18 133/68 01/17/19 03:54 98.4 F 61 12 131/61 91 01/16/19 23:21 98.1 F 62 14 141/72 95 01/16/19 22:00 66 18 01/16/19 21:15 70 16 98 01/16/19 21:05 65 16 01/16/19 19:43 98.3 F 69 12 148/74 94 01/16/19 15:32 67 18 01/16/19 15:29 97.3 F L 01/16/19 15:26 64 20 147/72 93 01/16/19 15:18 67 18 01/16/19 12:57 66 18 136/56 99 01/16/19 12:56 97.4 F L - Physical Examination General: No Apparent Distress HEENT: Positive: PERRL Neck: Positive: neck supple, trachea midline Cardiac: Positive: Reg Rate and Rhythm, Regular Rhythm Lungs: Positive: clear to auscultation Neuro: Positive: Grossly Intact Abdomen: Positive: Soft. Negative: Tender Skin: Negative: Rash Musculoskeletal: No Pain Extremities: Present: normal. Absent: edema - Labs and Meds CBC 01/17/19 Range/Units 05:07 WBC 6.4 (4.5-11.0) K/mm3 RBC 4.22 (3.65-5.03) M/mm3 Hgb 13.7 (10.1-14.3) gm/dl Hct 39.2 (30.3-42.9) % Plt Count 272 (140-440) K/mm3 Comprehensive Metabolic Panel 01/17/19 Range/Units 05:07 Sodium 142 (137-145) mmol/L Potassium 3.8 (3.6-5.0) mmol/L Chloride 102.9 (98-107) mmol/L Carbon Dioxide 25 (22-30) mmol/L BUN 25 H (7-17) mg/dL Creatinine 0.5 L (0.7-1.2) mg/dL Glucose 100 (65-100) mg/dL Calcium 9.2 (8.4-10.2) mg/dL - Imaging and Cardiology EKG: report reviewed, image reviewed Echo: pending - EKG Sinus rhythms and dysrhythmias: sinus rhythm AV and intraventricular conduction: right bundle branch block
[2019-01-17] MEDS: HABITROL TD SCH (10:15)
[2019-01-17] MEDS: LOPRESSOR PO SCH ×2 (10:15→22:06)
[2019-01-17] MEDS: DITROPAN XL PO SCH (10:15)
[2019-01-17] MEDS: PAXIL PO SCH (10:16)
[2019-01-17] MEDS: ZESTRIL PO SCH (10:16)
[2019-01-17] MEDS: ZITHROMAX PO SCH (10:16)
[2019-01-17] MEDS: PEPCID PO SCH ×2 (10:17→22:07)
[2019-01-17] MEDS: SODIUM CHLORIDE FLUSH SYRINGE 10 ML IV SCH ×2 (10:17→22:08)
[2019-01-17] MEDS: ROCEPHIN/NS 2 GM/100 ML 2 GM/100 ML BAG IV SCH (10:17)
--- NOTE | 2019-01-17 10:59 | Progress Note ---
Assessment and Plan Assessment and plan: Acute respiratory failure due to CHF exacerbation. Admitted to Telemetry Oxygen supplementation Pulmonology following Acute on chronic systolic CHF, EF 45-50% Patient admits she missed 2 days of lasix Cont Lasix iv bid Cardiology following COPD exacerbation Emphesema changes seen on CT chest Duoneb Albuterol prn Fever due to pneumonia Leukocytosis Bilateral pneumonia, possibly Blood cultures drawn - NGTD after 72hrs Continue Ceftriaxone and Azithromycin Chronic diarrhea intermittent for years. Give Imodium prn Hypertension Monitor BP DVT prophylaxis. SCDs, Heparin Full code status hopefully dc home in few days. History Interval history: Feels much better less shortness of breath Oxygen by NC down to 3l/min, from 5l/min yesterday No more fever Diarrhea-she complains of chronic diarrhea for years Hospitalist Physical - Physical exam Narrative exam: GEN: Not in acute respiratory distress, lying in bed, Oxygen by NC HEENT: Normocephalic, atraumatic, Neck: supple, No JVD heart: S1 and S2 reg no murmurs, no gallop Lungs: Bilateral basal crackles , no wheeze Abd:soft, non tender, non distended, normal bowel sounds Ext: No edema,no clubbing, no cyanosis, Neuro:Awake,alert,oriented X 3, no focal signs, moves all ext Psych: normal mood - Constitutional Vitals: Temp Pulse Resp BP Pulse Ox 98.1 F 78 18 133/68 91 01/17/19 08:46 01/17/19 10:16 01/17/19 08:46 01/17/19 10:16 01/17/19 03:54 General appearance: Present: other (SOB) Results - Labs CBC & Chem 7: 01/17/19 05:07 01/17/19 05:07 Labs: Laboratory Last Values WBC 6.4 K/mm3 (4.5-11.0) 01/17/19 05:07 RBC 4.22 M/mm3 (3.65-5.03) 01/17/19 05:07 Hgb 13.7 gm/dl (10.1-14.3) 01/17/19 05:07 Hct 39.2 % (30.3-42.9) 01/17/19 05:07 MCV 93 fl (79-97) 01/17/19 05:07 MCH 32 pg (28-32) 01/17/19 05:07 MCHC 35 % (30-34) H 01/17/19 05:07 RDW 14.2 % (13.2-15.2) 01/17/19 05:07 Plt Count 272 K/mm3 (140-440) 01/17/19 05:07 Lymph % (Auto) 10.9 % (13.4-35.0) L 01/14/19 05:20 [place] % (Auto) 7.8 % (0.0-7.3) H 01/14/19 05:20 Eos % (Auto) 0.8 % (0.0-4.3) 01/14/19 05:20 Baso % (Auto) 0.2 % (0.0-1.8) 01/14/19 05:20 Lymph # 1.3 K/mm3 (1.2-5.4) 01/14/19 05:20 [place] # 0.9 K/mm3 (0.0-0.8) H 01/14/19 05:20 Eos # 0.1 K/mm3 (0.0-0.4) 01/14/19 05:20 Baso # 0.0 K/mm3 (0.0-0.1) 01/14/19 05:20 Seg Neutrophils % 80.3 % (40.0-70.0) H 01/14/19 05:20 Seg Neutrophils # 9.4 K/mm3 (1.8-7.7) H 01/14/19 05:20 PT 14.3 Sec. (12.2-14.9) 01/13/19 07:35 INR 1.05 (0.87-1.13) 01/13/19 07:35 APTT 32.2 Sec. (24.2-36.6) 01/13/19 07:35 POC ABG pH 7.444 (7.35-7.45) 01/14/19 15:57 POC ABG pCO2 31.8 (35-45) L 01/14/19 15:57 POC ABG pO2 59 (80-105) L 01/14/19 15:57 POC ABG HCO3 21.8 (22-26 mml/L) 01/14/19 15:57 POC ABG Total CO2 23 (23-27mmol/L) 01/14/19 15:57 POC ABG O2 Sat 92 01/14/19 15:57 POC ABG Base Excess -2 ((-2) - (+3)mmol/L) 01/14/19 15:57 FiO2 40 % 01/14/19 15:57 Sodium 142 mmol/L (137-145) 01/17/19 05:07 Potassium 3.8 mmol/L (3.6-5.0) 01/17/19 05:07 Chloride 102.9 mmol/L (98-107) 01/17/19 05:07 Carbon Dioxide 25 mmol/L (22-30) 01/17/19 05:07 Anion Gap 18 mmol/L 01/17/19 05:07 BUN 25 mg/dL (7-17) H 01/17/19 05:07 Creatinine 0.5 mg/dL (0.7-1.2) L 01/17/19 05:07 Estimated GFR > 60 ml/min 01/17/19 05:07 BUN/Creatinine Ratio 50 % 01/17/19 05:07 Glucose 100 mg/dL (65-100) 01/17/19 05:07 Lactic Acid 1.40 mmol/L (0.7-2.0) 01/13/19 13:15 Calcium 9.2 mg/dL (8.4-10.2) 01/17/19 05:07 Magnesium 1.90 mg/dL (1.7-2.3) 01/15/19 06:52 Total Bilirubin 2.20 mg/dL (0.1-1.2) H 01/13/19 07:35 AST 43 units/L (5-40) H 01/13/19 07:35 ALT 30 units/L (7-56) 01/13/19 07:35 Alkaline Phosphatase 149 units/L (35-129) H 01/13/19 07:35 Troponin T 0.029 ng/mL (0.00-0.029) 01/13/19 07:35 NT-Pro-B Natriuret Pep 6541 pg/mL (0-900) H 01/13/19 07:35 Total Protein 6.4 g/dL (6.3-8.2) 01/13/19 07:35 Albumin 3.4 g/dL (3.9-5) L 01/13/19 07:35 Albumin/Globulin Ratio 1.1 % 01/13/19 07:35 Urine Color [place]iela (Yellow) 01/13/19 00:40 Urine Turbidity Clear (Clear) 01/13/19 00:40 Urine pH 6.0 (5.0-7.0) 01/13/19 00:40 Ur Specific [place] 1.033 (1.003-1.030) H 01/13/19 00:40 Urine Protein 30 mg/dl mg/dL (Negative) 01/13/19 00:40 Urine Glucose (UA) Neg mg/dL (Negative) 01/13/19 00:40 Urine Ketones Neg mg/dL (Negative) 01/13/19 00:40 Urine Blood Neg (Negative) 01/13/19 00:40 Urine Nitrite Neg (Negative) 01/13/19 00:40 Urine Bilirubin Neg (Negative) 01/13/19 00:40 Urine Urobilinogen 4.0 mg/dL (<2.0) 01/13/19 00:40 Ur Leukocyte Esterase Neg (Negative) 01/13/19 00:40 Urine WBC (Auto) 1.0 /HPF (0.0-6.0) 01/13/19 00:40 Urine RBC (Auto) 2.0 /HPF (0.0-6.0) 01/13/19 00:40 U Epithel Cells (Auto) 1.0 /HPF (0-13.0) 01/13/19 00:40 Active Medications - Current Medications Current Medications: Generic Name Dose Route Start Last Admin Trade Name Freq PRN Reason Stop Dose Admin Acetaminophen 650 mg 01/13/19 12:27 01/16/19 21:42 Tylenol PO 650 mg Q4H PRN Administration Pain MILD(1-3)/Fever >100.5/OTERO Arformoterol Tartrate 15 mcg 01/14/19 20:00 01/17/19 08:38 Brovana Nebu IH Not Given Q12HRT ARIELLA Atorvastatin Calcium 20 mg 01/13/19 22:00 01/16/19 21:42 Lipitor PO 20 mg QHS ARIELLA Administration Azithromycin 500 mg 01/17/19 10:00 01/17/19 10:16 Zithromax PO 500 mg QDAY ARIELLA Administration Budesonide 0.5 mg 01/14/19 20:00 01/17/19 08:37 Pulmicort IH 0.5 mg Q12HRT ARIELLA Administration Famotidine 20 mg 01/13/19 15:00 01/17/19 10:17 Pepcid PO 20 mg BID ARIELLA Administration Furosemide 40 mg 01/13/19 18:00 01/17/19 06:04 Lasix IV 40 mg BID@0600,1800 ARIELLA Administration Haloperidol Lactate 5 mg 01/14/19 17:26 01/14/19 17:52 Haldol IV 5 mg Q6H PRN Administration Agitation Heparin Sodium (Porcine) 5,000 unit 01/15/19 06:00 01/17/19 06:04 Heparin SUB-Q 5,000 unit Q8HR ARIELLA Administration Ceftriaxone Sodium 2 gm in 100 mls @ 200 mls/hr 01/14/19 10:00 01/17/19 10:17 Rocephin/Ns 2 Gm/100 Ml IV 200 mls/hr Q24HR ARIELLA Administration Protocol Ipratropium [place] 0.5 mg 01/15/19 20:00 01/17/19 08:37 Atrovent IH 0.5 mg TIDRT ARIELLA Administration Levalbuterol HCl 0.63 mg 01/15/19 20:00 01/17/19 08:37 Xopenex IH 0.63 mg TIDRT ARIELLA Administration Lisinopril 10 mg 01/14/19 10:00 01/17/19 10:16 Zestril PO 10 mg QDAY ARIELLA Administration Loperamide HCl 2 mg 01/15/19 11:00 Imodium PO Q2H PRN Diarrhea Metoprolol Tartrate 25 mg 01/13/19 22:00 01/17/19 10:15 Lopressor PO 25 mg BID ARIELLA Administration Morphine Sulfate 2 mg 01/13/19 12:27 Morphine IV Q4H PRN Pain, Moderate (4-6) Nicotine 21 mg 01/14/19 18:30 01/17/19 10:15 Habitrol TD 21 mg QDAY ARIELLA Administration Nitroglycerin 0.4 mg 01/13/19 13:34 Nitrostat SL .Q5MIN PRN Chest Pain Ondansetron HCl 4 mg 01/13/19 12:27 Zofran IV Q8H PRN Nausea And Vomiting Oxybutynin Chloride 5 mg 01/13/19 15:00 01/17/19 10:15 Ditropan Xl PO 5 mg DAILY ARIELLA Administration Paroxetine HCl 40 mg 01/14/19 10:00 01/17/19 10:16 Paxil PO 20 mg DAILY ARIELLA Administration Sodium Chloride 10 ml 01/13/19 22:00 01/17/19 10:17 Sodium Chloride Flush Syringe 10 Ml IV 10 ml BID ARIELLA Administration Sodium Chloride 10 ml 01/13/19 12:27 Sodium Chloride Flush Syringe 10 Ml IV PRN PRN LINE FLUSH Temazepam 15 mg 01/16/19 21:24 01/16/19 21:42 Restoril PO 15 mg QHS PRN Administration Sleep Nutrition/Malnutrition Assess - Dietary Evaluation Nutrition/Malnutrition Findings: Nutrition Notes Start: 01/14/19 11:39 Freq: Status: Active Protocol: Document 01/16/19 14:39 RM (Rec: 01/16/19 14:48 RM [id number]) Nutrition Notes Initial or Follow up Reassessment Current Diagnosis COPD,Hypertension,Heart Failure,Hyperlipidemia Other Pertinent Diagnosis pulm edema, SOB Current Diet [facility] soft,Cardiac w/Ensure Enlive BID Labs/Tests Reviewed Pertinent Medications Reviewed Height 5 ft 3 in Weight 72.5 kg [place] Body Weight (kg) 52.27 BMI 28.3 Weight change and time frame Wt increased likely d/t fluid change Subjective/Other Information Pt stated that she eats 25% of her meals and drinks the Ensure Enlive. Noted preferences. Percent of energy/protein needs met: 78%/82% Burn Absent Trauma Absent #2 Nutrition Diagnosis Malnutrition Diagnosis Progress(for reassessment Continues documentation) #1 Nutrition Diagnosis Inadequate oral intake As Evidenced by Signs and Symptoms pt meeting 78% of calorie and 82% of protein needs Diagnosis Progress(for reassessment Resolved documentation) Is patient on ventilator? No Is Patient Ambulatory and/or Out of Bed Yes REE-([place] Jeor-ambulatory/OOB) [ 1571.869 NUTR.MSJOOB] Calculation Used for Recommendations [place]or Additional Notes Protein needs: (1.2-1.5g/kg) 74-111g/day Fluid needs: 1mL/kcal Nutrition Intervention Change Diet Order: [facility] Soft/Cardiac Add Supplement/Snack (indicate name/kcal Ensure Enlive BID /protein ) Provides kCal: 700 Provides Protein (gm) 40 Goal #1 Continue to meet at least 75% of nutrient needs Anticipated Discharge Needs: Cardiac, Mech Soft Follow-Up By: 01/21/19 Additional Comments Follow for PO and ONS intakes
--- NOTE | 2019-01-17 11:48 | Progress Note ---
Assessment and Plan 73 y/o female with acute respiratory failure thought secondary to pulmonary edema as she missed several doses of lasix and possible COPD exacerbation. 1. Agree with IV BID lasix therapy, should continue with goal of daily net negative state 2. No need for systemic steroid therapy. 3. Keep bipap available PRN 4. Continue nicotine patch 5. COntinue BID pulmicort and brovana but would not discharge on these 6. Patient may need oxygen at discharge but should continue diuresis as tolerated. 7. Abx per primary team but I do not feel that patient has pneumonia. 8. Encouraged follow up with pulmonary in [place] upon her return. Subjective Date of service: 01/17/19 Principal diagnosis: HF Interval history: No acute events. oxygen requirement down to 3 liters with good sats. CXR done this am but not sure why. clinically patient is improving. Echo shows systolic as well as diastolic dysfunction. Objective Vital Signs - 12hr 01/17/19 01/17/19 01/17/19 03:54 08:37 08:46 Temperature 98.4 F 98.1 F Pulse Rate 61 Pulse Rate [ 68 Anterior Bilateral Throughout] Respiratory 12 18 Rate Respiratory 18 Rate [Anterior Bilateral Throughout] Blood Pressure 131/61 133/68 O2 Sat by Pulse 91 96 Oximetry 01/17/19 01/17/19 01/17/19 08:47 10:15 10:16 Temperature Pulse Rate 78 78 Pulse Rate [ 69 Anterior Bilateral Throughout] Respiratory Rate Respiratory 18 Rate [Anterior Bilateral Throughout] Blood Pressure 133/68 133/68 O2 Sat by Pulse Oximetry Constitutional: no acute distress, alert Eyes: non-icteric ENT: oropharynx moist Neck: supple Ascultation: Bilateral: rales Cardiovascular: regular rate and rhythm Gastrointestinal: normoactive bowel sounds Integumentary: normal Extremities: no cyanosis Neurologic: normal mental status, non-focal exam Psychiatric: mood appropriate, affect normal CBC and BMP: 01/17/19 05:07 01/17/19 05:07 ABG, PT/INR, D-dimer: ABG POC ABG pH 7.444 (7.35-7.45) 01/14/19 15:57 POC ABG pCO2 31.8 (35-45) L 01/14/19 15:57 POC ABG pO2 59 (80-105) L 01/14/19 15:57 POC ABG HCO3 21.8 (22-26 mml/L) 01/14/19 15:57 POC ABG Total CO2 23 (23-27mmol/L) 01/14/19 15:57 POC ABG O2 Sat 92 01/14/19 15:57 PT/INR, D-dimer PT 14.3 Sec. (12.2-14.9) 01/13/19 07:35 INR 1.05 (0.87-1.13) 01/13/19 07:35 Abnormal lab findings: Abnormal Labs 01/13/19 01/13/19 01/13/19 00:40 07:34 07:35 WBC 13.0 H MCHC 35 H Lymph % (Auto) 7.4 L [place] % (Auto) Lymph # 1.0 L [place] # 0.9 H Seg Neutrophils % 85.1 H Seg Neutrophils # 11.1 H POC ABG pCO2 POC ABG pO2 Potassium 3.4 L BUN 22 H Creatinine Glucose 120 H Total Bilirubin 2.20 H AST 43 H Alkaline Phosphatase 149 H NT-Pro-B Natriuret Pep 6541 H Albumin 3.4 L Ur Specific [place] 1.033 H 01/13/19 01/14/19 01/14/19 08:19 05:20 05:20 WBC 11.7 H MCHC Lymph % (Auto) 10.9 L [place] % (Auto) 7.8 H Lymph # [place] # 0.9 H Seg Neutrophils % 80.3 H Seg Neutrophils # 9.4 H POC ABG pCO2 34.0 L POC ABG pO2 53 L Potassium 3.1 L BUN Creatinine 0.5 L Glucose 109 H Total Bilirubin AST Alkaline Phosphatase NT-Pro-B Natriuret Pep Albumin Ur Specific [place] 01/14/19 01/15/19 01/16/19 15:57 06:52 05:05 WBC 12.0 H MCHC Lymph % (Auto) [place] % (Auto) Lymph # [place] # Seg Neutrophils % Seg Neutrophils # POC ABG pCO2 31.8 L POC ABG pO2 59 L Potassium 3.5 L BUN 20 H Creatinine 0.5 L Glucose 167 H Total Bilirubin AST Alkaline Phosphatase NT-Pro-B Natriuret Pep Albumin Ur Specific [place] 01/16/19 01/17/19 01/17/19 05:05 05:07 05:07 WBC MCHC 35 H Lymph % (Auto) [place] % (Auto) Lymph # [place] # Seg Neutrophils % Seg Neutrophils # POC ABG pCO2 POC ABG pO2 Potassium 3.2 L BUN 26 H 25 H Creatinine 0.5 L 0.5 L Glucose 120 H Total Bilirubin AST Alkaline Phosphatase NT-Pro-B Natriuret Pep Albumin Ur Specific [place]
--- NOTE | 2019-01-17 15:02 | XRay Report ---
PROCEDURE: XR CHEST 1V AP TECHNIQUE: Frontal view of the chest HISTORY: Bilateral infiltrates COMPARISONS: CTA chest 01/13/2019 demonstrating extensive interstitial infiltrates FINDINGS: Chest x-ray demonstrates markedly improved bilateral infiltrates with persistent reticular interstiti al prominence. Heart size is within normal limits, improved from the previous. IMPRESSION: Improving interstitial infiltrates with persistent reticular interstitial prominence. Improved heart size. Recommend follow-up exam be performed with 2 views.. This document is electronically signed by Irasema Dobson MD., January 17 2019 01:35:42 PM ET
[2019-01-17] MEDS: TYLENOL PO PRN (22:07)
[2019-01-17] MEDS: RESTORIL PO PRN (22:07)
[2019-01-18] MEDS: HEPARIN SUB-Q SCH ×3 (06:34→22:08)
[2019-01-18] MEDS: LASIX IV SCH ×2 (06:36→18:27)
[2019-01-18] MEDS: ATROVENT IH SCH ×3 (08:44→21:45)
[2019-01-18] MEDS: PULMICORT IH SCH ×2 (08:44→21:45)
[2019-01-18] MEDS: XOPENEX IH SCH ×3 (08:44→21:45)
[2019-01-18] MEDS: BROVANA NEBU IH SCH ×2 (08:44→21:45)
[2019-01-18] MEDS: HABITROL TD SCH (10:18)
[2019-01-18] MEDS: PAXIL PO SCH (10:19)
[2019-01-18] MEDS: ZESTRIL PO SCH (10:19)
[2019-01-18] MEDS: DITROPAN XL PO SCH (10:19)
[2019-01-18] MEDS: ZITHROMAX PO SCH (10:19)
[2019-01-18] MEDS: PEPCID PO SCH ×2 (10:20→22:06)
[2019-01-18] MEDS: LOPRESSOR PO SCH ×2 (10:20→22:07)
[2019-01-18] MEDS: ROCEPHIN/NS 2 GM/100 ML 2 GM/100 ML BAG IV SCH (10:21)
[2019-01-18] MEDS: SODIUM CHLORIDE FLUSH SYRINGE 10 ML IV SCH ×2 (10:21→22:06)
--- NOTE | 2019-01-18 11:25 | Progress Note ---
Assessment and Plan Patient continues to improve. Good diuresis. She is ambulating in the room. Continues to be on oxygen and she probably will be discharged on oxygen. He will need close follow-up after discharge, this is explained to the patient. Continue current management. - Patient Problems (1) HTN (hypertension) Current Visit: Yes Status: Chronic (2) History of cardiomyopathy Current Visit: Yes Status: Chronic (3) Hyperlipidemia Current Visit: Yes Status: Chronic Subjective Date of service: 01/18/19 Principal diagnosis: HF Interval history: Patient is feeling better. Prior notes are reviewed. Patient has been having good diuresis. Objective Vital Signs Temp Pulse Pulse Resp Resp BP BP 01/18/19 10:20 73 114/67 01/18/19 10:19 73 114/67 01/18/19 09:10 80 16 01/18/19 08:46 68 18 01/18/19 08:44 97.4 F L 18 114/67 01/18/19 04:25 98.1 F 57 L 18 115/56 01/17/19 23:58 98.4 F 65 18 112/67 01/17/19 22:00 72 18 01/17/19 21:50 73 20 01/17/19 21:27 68 19 01/17/19 20:00 97.8 F 74 18 123/72 01/17/19 18:09 72 18 122/70 01/17/19 14:36 70 18 01/17/19 14:26 69 18 01/17/19 12:21 98.9 F 18 101/49 Pulse Ox 01/18/19 10:20 01/18/19 10:19 01/18/19 09:10 01/18/19 08:46 97 01/18/19 08:44 01/18/19 04:25 99 01/17/19 23:58 96 01/17/19 22:00 01/17/19 21:50 01/17/19 21:27 96 01/17/19 20:00 92 01/17/19 18:09 97 01/17/19 14:36 01/17/19 14:26 01/17/19 12:21 - Physical Examination General: No Apparent Distress HEENT: Positive: PERRL Neck: Positive: neck supple, trachea midline Cardiac: Positive: Reg Rate and Rhythm Lungs: Positive: clear to auscultation Neuro: Positive: Grossly Intact Abdomen: Positive: Soft. Negative: Tender Skin: Negative: Rash Musculoskeletal: No Pain Extremities: Present: normal. Absent: edema - Imaging and Cardiology EKG: report reviewed, image reviewed Echo: pending - Telemetry EKG Rhythm: Sinus Rhythm - EKG Sinus rhythms and dysrhythmias: sinus rhythm AV and intraventricular conduction: right bundle branch block
--- NOTE | 2019-01-18 12:57 | Progress Note ---
Assessment and Plan Assessment and plan: Acute respiratory failure due to CHF exacerbation. Admitted to Telemetry Oxygen supplementation Pulmonology following Acute on chronic systolic CHF, EF 45-50% Patient admits she missed 2 days of lasix Cont Lasix iv bid Cardiology following Repeat CXR in am COPD exacerbation Emphesema changes seen on CT chest Duoneb Albuterol prn Fever due to pneumonia Leukocytosis Bilateral pneumonia Blood cultures drawn - NGTD after 72hrs Continue Ceftriaxone and Azithromycin Chronic diarrhea intermittent for years. Give Imodium prn Hypertension Monitor BP DVT prophylaxis. SCDs, Heparin Full code status Dispo:May need acute rehab. She lives in [place] History Interval history: Feels much better less shortness of breath Oxygen by NC down to 3l/min, from 5l/min few days ago No more fever Diarrhea-she complains of chronic diarrhea for years Hospitalist Physical - Physical exam Narrative exam: GEN: Not in acute respiratory distress, lying in bed, Oxygen by NC HEENT: Normocephalic, atraumatic, Neck: supple, No JVD heart: S1 and S2 reg no murmurs, no gallop Lungs: Bilateral basal crackles , no wheeze Abd:soft, non tender, non distended, normal bowel sounds Ext: No edema,no clubbing, no cyanosis, Neuro:Awake,alert,oriented X 3, no focal signs, moves all ext Psych: normal mood - Constitutional Vitals: Temp Pulse Resp BP Pulse Ox 97.4 F L 73 16 114/67 97 01/18/19 08:44 01/18/19 10:20 01/18/19 09:10 01/18/19 10:20 01/18/19 08:46 General appearance: Present: other (SOB) Results - Labs CBC & Chem 7: 01/17/19 05:07 01/17/19 05:07 Labs: Laboratory Last Values WBC 6.4 K/mm3 (4.5-11.0) 01/17/19 05:07 RBC 4.22 M/mm3 (3.65-5.03) 01/17/19 05:07 Hgb 13.7 gm/dl (10.1-14.3) 01/17/19 05:07 Hct 39.2 % (30.3-42.9) 01/17/19 05:07 MCV 93 fl (79-97) 01/17/19 05:07 MCH 32 pg (28-32) 01/17/19 05:07 MCHC 35 % (30-34) H 01/17/19 05:07 RDW 14.2 % (13.2-15.2) 01/17/19 05:07 Plt Count 272 K/mm3 (140-440) 01/17/19 05:07 Lymph % (Auto) 10.9 % (13.4-35.0) L 01/14/19 05:20 [place] % (Auto) 7.8 % (0.0-7.3) H 01/14/19 05:20 Eos % (Auto) 0.8 % (0.0-4.3) 01/14/19 05:20 Baso % (Auto) 0.2 % (0.0-1.8) 01/14/19 05:20 Lymph # 1.3 K/mm3 (1.2-5.4) 01/14/19 05:20 [place] # 0.9 K/mm3 (0.0-0.8) H 01/14/19 05:20 Eos # 0.1 K/mm3 (0.0-0.4) 01/14/19 05:20 Baso # 0.0 K/mm3 (0.0-0.1) 01/14/19 05:20 Seg Neutrophils % 80.3 % (40.0-70.0) H 01/14/19 05:20 Seg Neutrophils # 9.4 K/mm3 (1.8-7.7) H 01/14/19 05:20 PT 14.3 Sec. (12.2-14.9) 01/13/19 07:35 INR 1.05 (0.87-1.13) 01/13/19 07:35 APTT 32.2 Sec. (24.2-36.6) 01/13/19 07:35 POC ABG pH 7.444 (7.35-7.45) 01/14/19 15:57 POC ABG pCO2 31.8 (35-45) L 01/14/19 15:57 POC ABG pO2 59 (80-105) L 01/14/19 15:57 POC ABG HCO3 21.8 (22-26 mml/L) 01/14/19 15:57 POC ABG Total CO2 23 (23-27mmol/L) 01/14/19 15:57 POC ABG O2 Sat 92 01/14/19 15:57 POC ABG Base Excess -2 ((-2) - (+3)mmol/L) 01/14/19 15:57 FiO2 40 % 01/14/19 15:57 Sodium 142 mmol/L (137-145) 01/17/19 05:07 Potassium 3.8 mmol/L (3.6-5.0) 01/17/19 05:07 Chloride 102.9 mmol/L (98-107) 01/17/19 05:07 Carbon Dioxide 25 mmol/L (22-30) 01/17/19 05:07 Anion Gap 18 mmol/L 01/17/19 05:07 BUN 25 mg/dL (7-17) H 01/17/19 05:07 Creatinine 0.5 mg/dL (0.7-1.2) L 01/17/19 05:07 Estimated GFR > 60 ml/min 01/17/19 05:07 BUN/Creatinine Ratio 50 % 01/17/19 05:07 Glucose 100 mg/dL (65-100) 01/17/19 05:07 Lactic Acid 1.40 mmol/L (0.7-2.0) 01/13/19 13:15 Calcium 9.2 mg/dL (8.4-10.2) 01/17/19 05:07 Magnesium 1.90 mg/dL (1.7-2.3) 01/15/19 06:52 Total Bilirubin 2.20 mg/dL (0.1-1.2) H 01/13/19 07:35 AST 43 units/L (5-40) H 01/13/19 07:35 ALT 30 units/L (7-56) 01/13/19 07:35 Alkaline Phosphatase 149 units/L (35-129) H 01/13/19 07:35 Troponin T 0.029 ng/mL (0.00-0.029) 01/13/19 07:35 NT-Pro-B Natriuret Pep 6541 pg/mL (0-900) H 01/13/19 07:35 Total Protein 6.4 g/dL (6.3-8.2) 01/13/19 07:35 Albumin 3.4 g/dL (3.9-5) L 01/13/19 07:35 Albumin/Globulin Ratio 1.1 % 01/13/19 07:35 Urine Color [place] (Yellow) 01/13/19 00:40 Urine Turbidity Clear (Clear) 01/13/19 00:40 Urine pH 6.0 (5.0-7.0) 01/13/19 00:40 Ur Specific [place] 1.033 (1.003-1.030) H 01/13/19 00:40 Urine Protein 30 mg/dl mg/dL (Negative) 01/13/19 00:40 Urine Glucose (UA) Neg mg/dL (Negative) 01/13/19 00:40 Urine Ketones Neg mg/dL (Negative) 01/13/19 00:40 Urine Blood Neg (Negative) 01/13/19 00:40 Urine Nitrite Neg (Negative) 01/13/19 00:40 Urine Bilirubin Neg (Negative) 01/13/19 00:40 Urine Urobilinogen 4.0 mg/dL (<2.0) 01/13/19 00:40 Ur Leukocyte Esterase Neg (Negative) 01/13/19 00:40 Urine WBC (Auto) 1.0 /HPF (0.0-6.0) 01/13/19 00:40 Urine RBC (Auto) 2.0 /HPF (0.0-6.0) 01/13/19 00:40 U Epithel Cells (Auto) 1.0 /HPF (0-13.0) 01/13/19 00:40 Active Medications - Current Medications Current Medications: Generic Name Dose Route Start Last Admin Trade Name Freq PRN Reason Stop Dose Admin Acetaminophen 650 mg 01/13/19 12:27 01/17/19 22:07 Tylenol PO 650 mg Q4H PRN Administration Pain MILD(1-3)/Fever >100.5/OTERO Arformoterol Tartrate 15 mcg 01/14/19 20:00 01/18/19 08:44 Brovana Nebu IH 15 mcg Q12HRT ARIELLA Administration Atorvastatin Calcium 20 mg 01/13/19 22:00 01/17/19 22:07 Lipitor PO 20 mg QHS ARIELLA Administration Azithromycin 500 mg 01/17/19 10:00 01/18/19 10:19 Zithromax PO 500 mg QDAY ARIELLA Administration Budesonide 0.5 mg 01/14/19 20:00 01/18/19 08:44 Pulmicort IH 0.5 mg Q12HRT ARIELLA Administration Famotidine 20 mg 01/13/19 15:00 01/18/19 10:20 Pepcid PO 20 mg BID ARIELLA Administration Furosemide 40 mg 01/13/19 18:00 01/18/19 06:36 Lasix IV 40 mg BID@0600,1800 ARIELLA Administration Haloperidol Lactate 5 mg 01/14/19 17:26 01/14/19 17:52 Haldol IV 5 mg Q6H PRN Administration Agitation Heparin Sodium (Porcine) 5,000 unit 01/15/19 06:00 01/18/19 06:34 Heparin SUB-Q 5,000 unit Q8HR ARIELLA Administration Ceftriaxone Sodium 2 gm in 100 mls @ 200 mls/hr 01/14/19 10:00 01/18/19 10:21 Rocephin/Ns 2 Gm/100 Ml IV 200 mls/hr Q24HR ARIELLA Administration Protocol Ipratropium [place] 0.5 mg 01/15/19 20:00 01/18/19 08:44 Atrovent IH 0.5 mg TIDRT ARIELLA Administration Levalbuterol HCl 0.63 mg 01/15/19 20:00 01/18/19 08:44 Xopenex IH 0.63 mg TIDRT ARIELLA Administration Lisinopril 10 mg 01/14/19 10:00 01/18/19 10:19 Zestril PO 10 mg QDAY ARIELLA Administration Loperamide HCl 2 mg 01/15/19 11:00 01/17/19 16:50 Imodium PO 2 mg Q2H PRN Administration Diarrhea Metoprolol Tartrate 25 mg 01/13/19 22:00 01/18/19 10:20 Lopressor PO 25 mg BID ARIELLA Administration Morphine Sulfate 2 mg 01/13/19 12:27 Morphine IV Q4H PRN Pain, Moderate (4-6) Nicotine 21 mg 01/14/19 18:30 01/18/19 10:18 Habitrol TD 21 mg QDAY ARIELLA Administration Nitroglycerin 0.4 mg 01/13/19 13:34 Nitrostat SL .Q5MIN PRN Chest Pain Ondansetron HCl 4 mg 01/13/19 12:27 Zofran IV Q8H PRN Nausea And Vomiting Oxybutynin Chloride 5 mg 01/13/19 15:00 01/18/19 10:19 Ditropan Xl PO 5 mg DAILY ARIELLA Administration Paroxetine HCl 40 mg 01/14/19 10:00 01/18/19 10:19 Paxil PO 40 mg DAILY ARIELLA Administration Sodium Chloride 10 ml 01/13/19 22:00 01/18/19 10:21 Sodium Chloride Flush Syringe 10 Ml IV 10 ml BID ARIELLA Administration Sodium Chloride 10 ml 01/13/19 12:27 Sodium Chloride Flush Syringe 10 Ml IV PRN PRN LINE FLUSH Temazepam 15 mg 01/16/19 21:24 01/17/19 22:07 Restoril PO 15 mg QHS PRN Administration Sleep Nutrition/Malnutrition Assess - Dietary Evaluation Nutrition/Malnutrition Findings: Nutrition Notes Start: 01/14/19 11:39 Freq: Status: Active Protocol: Document 01/16/19 14:39 RM (Rec: 01/16/19 14:48 RM [id number]) Nutrition Notes Initial or Follow up Reassessment Current Diagnosis COPD,Hypertension,Heart Failure,Hyperlipidemia Other Pertinent Diagnosis pulm edema, SOB Current Diet Mech soft,Cardiac w/Ensure Enlive BID Labs/Tests Reviewed Pertinent Medications Reviewed Height 5 ft 3 in Weight 72.5 kg [place] Body Weight (kg) 52.27 BMI 28.3 Weight change and time frame Wt increased likely d/t fluid change Subjective/Other Information Pt stated that she eats 25% of her meals and drinks the Ensure Enlive. Noted preferences. Percent of energy/protein needs met: 78%/82% Burn Absent Trauma Absent #2 Nutrition Diagnosis Malnutrition Diagnosis Progress(for reassessment Continues documentation) #1 Nutrition Diagnosis Inadequate oral intake As Evidenced by Signs and Symptoms pt meeting 78% of calorie and 82% of protein needs Diagnosis Progress(for reassessment Resolved documentation) Is patient on ventilator? No Is Patient Ambulatory and/or Out of Bed Yes REE-([facility]-ambulatory/OOB) [ 1571.869 [id number]] Calculation Used for Recommendations [facility] Additional Notes Protein needs: (1.2-1.5g/kg) 74-111g/day Fluid needs: 1mL/kcal Nutrition Intervention Change Diet Order: [facility] Soft/Cardiac Add Supplement/Snack (indicate name/kcal Ensure Enlive BID /protein ) Provides kCal: 700 Provides Protein (gm) 40 Goal #1 Continue to meet at least 75% of nutrient needs Anticipated Discharge Needs: Cardiac, Mech Soft Follow-Up By: 01/21/19 Additional Comments Follow for PO and ONS intakes
--- NOTE | 2019-01-18 13:31 | Progress Note ---
Assessment and Plan 73 y/o female with acute respiratory failure thought secondary to pulmonary edema as she missed several doses of lasix and possible COPD exacerbation. 1. Agree with IV BID lasix therapy, should continue with goal of daily net negative state 2. No need for systemic steroid therapy. 3. Keep bipap available PRN 4. Continue nicotine patch 5. COntinue BID pulmicort and brovana but would not discharge on these. Only while in house 6. Walk test prior to discharge to determine if patient will need oxygen 7. Abx per primary team but I do not feel that patient has pneumonia. 8. Encouraged follow up with pulmonary in [place] upon her return. 9. Please discharge with a PRN rescue inhaler and she can obtain other meds once back in [place]. Subjective Date of service: 01/18/19 Principal diagnosis: HF Interval history: Down to 2.5 liters NC Objective Vital Signs - 12hr 01/18/19 01/18/19 01/18/19 04:25 08:44 08:46 Temperature 98.1 F 97.4 F L Pulse Rate 57 L Pulse Rate [ 68 Anterior Bilateral Throughout] Respiratory 18 18 Rate Respiratory 18 Rate [Anterior Bilateral Throughout] Blood Pressure 115/56 114/67 Blood Pressure [Left] O2 Sat by Pulse 99 97 Oximetry 01/18/19 01/18/19 01/18/19 09:10 10:00 10:19 Temperature Pulse Rate 73 Pulse Rate [ 80 Anterior Bilateral Throughout] Respiratory 18 Rate Respiratory 16 Rate [Anterior Bilateral Throughout] Blood Pressure 114/67 Blood Pressure [Left] O2 Sat by Pulse Oximetry 01/18/19 01/18/19 10:20 13:12 Temperature 98.2 F Pulse Rate 73 72 Pulse Rate [ Anterior Bilateral Throughout] Respiratory 18 Rate Respiratory Rate [Anterior Bilateral Throughout] Blood Pressure 114/67 Blood Pressure 102/51 [Left] O2 Sat by Pulse 97 Oximetry Constitutional: no acute distress, alert Eyes: non-icteric ENT: oropharynx moist Neck: supple Ascultation: Bilateral: rales Cardiovascular: regular rate and rhythm Gastrointestinal: normoactive bowel sounds Integumentary: normal Extremities: no cyanosis Neurologic: normal mental status, non-focal exam Psychiatric: mood appropriate, affect normal CBC and BMP: 01/17/19 05:07 01/17/19 05:07 ABG, PT/INR, D-dimer: ABG POC ABG pH 7.444 (7.35-7.45) 01/14/19 15:57 POC ABG pCO2 31.8 (35-45) L 01/14/19 15:57 POC ABG pO2 59 (80-105) L 01/14/19 15:57 POC ABG HCO3 21.8 (22-26 mml/L) 01/14/19 15:57 POC ABG Total CO2 23 (23-27mmol/L) 01/14/19 15:57 POC ABG O2 Sat 92 01/14/19 15:57 PT/INR, D-dimer PT 14.3 Sec. (12.2-14.9) 01/13/19 07:35 INR 1.05 (0.87-1.13) 01/13/19 07:35 Abnormal lab findings: Abnormal Labs 01/13/19 01/13/19 01/13/19 00:40 07:34 07:35 WBC 13.0 H MCHC 35 H Lymph % (Auto) 7.4 L [place] % (Auto) Lymph # 1.0 L [place] # 0.9 H Seg Neutrophils % 85.1 H Seg Neutrophils # 11.1 H POC ABG pCO2 POC ABG pO2 Potassium 3.4 L BUN 22 H Creatinine Glucose 120 H Total Bilirubin 2.20 H AST 43 H Alkaline Phosphatase 149 H NT-Pro-B Natriuret Pep 6541 H Albumin 3.4 L Ur Specific [place] 1.033 H 01/13/19 01/14/19 01/14/19 08:19 05:20 05:20 WBC 11.7 H MCHC Lymph % (Auto) 10.9 L [place] % (Auto) 7.8 H Lymph # [place] # 0.9 H Seg Neutrophils % 80.3 H Seg Neutrophils # 9.4 H POC ABG pCO2 34.0 L POC ABG pO2 53 L Potassium 3.1 L BUN Creatinine 0.5 L Glucose 109 H Total Bilirubin AST Alkaline Phosphatase NT-Pro-B Natriuret Pep Albumin Ur Specific [place] 01/14/19 01/15/19 01/16/19 15:57 06:52 05:05 WBC 12.0 H MCHC Lymph % (Auto) [place] % (Auto) Lymph # [place] # Seg Neutrophils % Seg Neutrophils # POC ABG pCO2 31.8 L POC ABG pO2 59 L Potassium 3.5 L BUN 20 H Creatinine 0.5 L Glucose 167 H Total Bilirubin AST Alkaline Phosphatase NT-Pro-B Natriuret Pep Albumin Ur Specific [place] 01/16/19 01/17/19 01/17/19 05:05 05:07 05:07 WBC MCHC 35 H Lymph % (Auto) [place] % (Auto) Lymph # [place] # Seg Neutrophils % Seg Neutrophils # POC ABG pCO2 POC ABG pO2 Potassium 3.2 L BUN 26 H 25 H Creatinine 0.5 L 0.5 L Glucose 120 H Total Bilirubin AST Alkaline Phosphatase NT-Pro-B Natriuret Pep Albumin Ur Specific [place]
[2019-01-18] MEDS: TYLENOL PO PRN (16:49)
[2019-01-18] MEDS: RESTORIL PO PRN (22:15)
[2019-01-18] MEDS ORDERED: DIFLUCAN PO ONE (22:56)
[2019-01-19] MEDS: LASIX IV SCH ×2 (06:31→18:00)
[2019-01-19] MEDS: HEPARIN SUB-Q SCH ×3 (06:31→23:04)
[2019-01-19 07:04] LABS: Hematocrit 40.8 % (30.3-42.9); Hemoglobin 13.9 gm/dl (10.1-14.3); Mean Corpuscular HGB Conc 34 % (30-34); Mean Corpuscular Volume 92 fl (79-97); Platelet Count 335 K/mm3 (140-440); Red Blood Count 4.43 M/mm3 (3.65-5.03); Red Cell Distribution Width 14.3 % (13.2-15.2)
[2019-01-19 07:27] LABS: BUN/Creatinine Ratio 40; Blood Urea Nitrogen 24 mg/dL (7-17); Calcium 9.4 mg/dL (8.4-10.2); Hemolysis Index 8
[2019-01-19] MEDS: PULMICORT IH SCH ×2 (07:40→22:47)
[2019-01-19] MEDS: BROVANA NEBU IH SCH ×2 (07:41→22:47)
[2019-01-19] MEDS: ATROVENT IH SCH ×3 (07:41→22:47)
[2019-01-19] MEDS ORDERED: K-DUR PO ONE ×2 (09:30→18:00)
[2019-01-19] MEDS: XOPENEX IH SCH ×3 (10:08→22:47)
--- NOTE | 2019-01-19 11:01 | Progress Note ---
Assessment and Plan Acute respiratory failure due to CHF exacerbation. Acute on chronic systolic CHF, EF 45-50% COPD exacerbation Bilateral pneumonia Chronic diarrhea intermittent for years. Hypertension Recommendations Complete antibiotics Ambulate patient and monitor oximetry. Add portable oxygen 2 L/m if oximetry below 89% on room air. Update influenza and pneumonia vaccination, if not completed already. Candidate for pulmonary rehabilitation. Needs to follow-up with pulmonary after she is back home. Discussed in detail. Outpatient pulmonary evaluation, PFT workup for COPD severity stratification Inhaler therapy including LAMA, LABA/ICS therapy, per GOLD guidelines. Patient Initiated on Stiolto or Anoro Nutritional support Subjective Date of service: 01/19/19 Principal diagnosis: HF Interval history: Reports breathing appears to be good today. No shortness of breath reported. Denies any fever, chest pain or expectoration Objective Vital Signs - 12hr 01/19/19 01/19/19 01/19/19 03:00 03:20 08:00 Temperature 98.1 F 97.5 F L Pulse Rate 62 59 L 78 Pulse Rate [ 78 Anterior Bilateral Throughout] Respiratory 18 20 Rate Respiratory 18 Rate [Anterior Bilateral Throughout] Blood Pressure 118/59 Blood Pressure 125/75 [Left] O2 Sat by Pulse 97 95 Oximetry 01/19/19 01/19/19 08:10 10:00 Temperature Pulse Rate Pulse Rate [ 77 Anterior Bilateral Throughout] Respiratory Rate Respiratory 18 Rate [Anterior Bilateral Throughout] Blood Pressure Blood Pressure [Left] O2 Sat by Pulse 95 Oximetry Constitutional: no acute distress, alert Eyes: non-icteric ENT: oropharynx moist Neck: supple Ascultation: Bilateral: diminished breath sounds, rales (sporadic bases posterior) Cardiovascular: regular rate and rhythm Gastrointestinal: normoactive bowel sounds Integumentary: normal Extremities: no cyanosis Neurologic: normal mental status, non-focal exam Psychiatric: mood appropriate, affect normal CBC and BMP: 01/19/19 06:24 01/19/19 06:24 ABG, PT/INR, D-dimer: ABG POC ABG pH 7.444 (7.35-7.45) 01/14/19 15:57 POC ABG pCO2 31.8 (35-45) L 01/14/19 15:57 POC ABG pO2 59 (80-105) L 01/14/19 15:57 POC ABG HCO3 21.8 (22-26 mml/L) 01/14/19 15:57 POC ABG Total CO2 23 (23-27mmol/L) 01/14/19 15:57 POC ABG O2 Sat 92 01/14/19 15:57 PT/INR, D-dimer PT 14.3 Sec. (12.2-14.9) 01/13/19 07:35 INR 1.05 (0.87-1.13) 01/13/19 07:35 Abnormal lab findings: Abnormal Labs 01/13/19 01/13/19 01/13/19 00:40 07:34 07:35 WBC 13.0 H MCHC 35 H Lymph % (Auto) 7.4 L [place] % (Auto) Lymph # 1.0 L [place] # 0.9 H Seg Neutrophils % 85.1 H Seg Neutrophils # 11.1 H POC ABG pCO2 POC ABG pO2 Potassium 3.4 L Carbon Dioxide BUN 22 H Creatinine Glucose 120 H Total Bilirubin 2.20 H AST 43 H Alkaline Phosphatase 149 H NT-Pro-B Natriuret Pep 6541 H Albumin 3.4 L Ur Specific [place] 1.033 H 01/13/19 01/14/19 01/14/19 08:19 05:20 05:20 WBC 11.7 H MCHC Lymph % (Auto) 10.9 L [place] % (Auto) 7.8 H Lymph # [place] # 0.9 H Seg Neutrophils % 80.3 H Seg Neutrophils # 9.4 H POC ABG pCO2 34.0 L POC ABG pO2 53 L Potassium 3.1 L Carbon Dioxide BUN Creatinine 0.5 L Glucose 109 H Total Bilirubin AST Alkaline Phosphatase NT-Pro-B Natriuret Pep Albumin Ur Specific [place] 01/14/19 01/15/19 01/16/19 15:57 06:52 05:05 WBC 12.0 H MCHC Lymph % (Auto) [place] % (Auto) Lymph # [place] # Seg Neutrophils % Seg Neutrophils # POC ABG pCO2 31.8 L POC ABG pO2 59 L Potassium 3.5 L Carbon Dioxide BUN 20 H Creatinine 0.5 L Glucose 167 H Total Bilirubin AST Alkaline Phosphatase NT-Pro-B Natriuret Pep Albumin Ur Specific [place] 01/16/19 01/17/19 01/17/19 05:05 05:07 05:07 WBC MCHC 35 H Lymph % (Auto) [place] % (Auto) Lymph # [place] # Seg Neutrophils % Seg Neutrophils # POC ABG pCO2 POC ABG pO2 Potassium 3.2 L Carbon Dioxide BUN 26 H 25 H Creatinine 0.5 L 0.5 L Glucose 120 H Total Bilirubin AST Alkaline Phosphatase NT-Pro-B Natriuret Pep Albumin Ur Specific [place] 01/19/19 06:24 WBC MCHC Lymph % (Auto) [place] % (Auto) Lymph # [place] # Seg Neutrophils % Seg Neutrophils # POC ABG pCO2 POC ABG pO2 Potassium 3.5 L Carbon Dioxide 31 H BUN 24 H Creatinine 0.6 L Glucose Total Bilirubin AST Alkaline Phosphatase NT-Pro-B Natriuret Pep Albumin Ur Specific [place]
[2019-01-19] MEDS: DITROPAN XL PO SCH (11:49)
[2019-01-19] MEDS: HABITROL TD SCH (11:50)
[2019-01-19] MEDS: LOPRESSOR PO SCH ×2 (11:51→22:00)
[2019-01-19] MEDS: ROCEPHIN/NS 2 GM/100 ML 2 GM/100 ML BAG IV SCH (12:02)
[2019-01-19] MEDS: PEPCID PO SCH ×2 (12:07→23:03)
[2019-01-19] MEDS: ZESTRIL PO SCH (12:07)
[2019-01-19] MEDS: ZITHROMAX PO SCH (12:11)
--- NOTE | 2019-01-19 12:13 | Progress Note ---
Assessment and Plan Pt clinically improved from cardiac perspective and appears euvolemic. She may discharge home from cardiology standpoint. At discharge, recommend PO lasix 40mg daily. Cont other GDMT. Pt may require home O2 - further eval/management per primary/pulmonary. Recommend pt follow up with her primary processing inspector in [place] within 3-5 days of hospital discharge. Pt and her sister at bedside verbalize understanding. The patient has been seen in conjunction with Dr. Hampton who agrees with the assessment and plan of care. - Patient Problems (1) Acute HFrEF (heart failure with reduced ejection fraction) Current Visit: Yes Status: Acute (2) Acute respiratory failure Current Visit: Yes Status: Acute (3) Pulmonary edema Current Visit: Yes Status: Acute (4) History of cardiomyopathy Current Visit: Yes Status: Chronic (5) HTN (hypertension) Current Visit: Yes Status: Chronic (6) Hyperlipidemia Current Visit: Yes Status: Chronic (7) COPD (chronic obstructive pulmonary disease) Current Visit: Yes Status: Chronic (8) ILD (interstitial lung disease) Current Visit: Yes Status: Suspected (9) Tobacco use Current Visit: Yes Status: Chronic (10) Alcohol use Current Visit: Yes Status: Chronic Subjective Date of service: 01/19/19 Principal diagnosis: HF Interval history: pt resting in bed, states she is feeling well. currently on room air, states she experiences desaturation with ambulation on room air. Objective Last Vital Signs Temp 97.5 F L 01/19/19 08:00 Pulse 71 01/19/19 12:01 Resp 18 01/19/19 12:01 BP 130/68 01/19/19 12:01 Pulse Ox 94 01/19/19 12:01 - Physical Examination General: No Apparent Distress HEENT: Positive: PERRL Neck: Positive: neck supple, trachea midline Cardiac: Positive: Reg Rate and Rhythm, S1/S2 Lungs: Positive: Decreased Breath Sounds Neuro: Positive: Grossly Intact Abdomen: Positive: Soft. Negative: Tender Skin: Negative: Rash Musculoskeletal: No Pain Extremities: Present: normal. Absent: edema - Labs and Meds CBC 01/19/19 Range/Units 06:24 WBC 9.0 (4.5-11.0) K/mm3 RBC 4.43 (3.65-5.03) M/mm3 Hgb 13.9 (10.1-14.3) gm/dl Hct 40.8 (30.3-42.9) % Plt Count 335 (140-440) K/mm3 Comprehensive Metabolic Panel 01/19/19 Range/Units 06:24 Sodium 142 (137-145) mmol/L Potassium 3.5 L (3.6-5.0) mmol/L Chloride 100.6 (98-107) mmol/L Carbon Dioxide 31 H (22-30) mmol/L BUN 24 H (7-17) mg/dL Creatinine 0.6 L (0.7-1.2) mg/dL Glucose 100 (65-100) mg/dL Calcium 9.4 (8.4-10.2) mg/dL - Imaging and Cardiology EKG: report reviewed, image reviewed Echo: report reviewed - Telemetry EKG Rhythm: Sinus Rhythm - EKG Sinus rhythms and dysrhythmias: sinus rhythm AV and intraventricular conduction: right bundle branch block
[2019-01-19] MEDS: SODIUM CHLORIDE FLUSH SYRINGE 10 ML IV SCH ×2 (12:17→22:00)
[2019-01-19] MEDS: PAXIL PO SCH (13:45)
--- NOTE | 2019-01-19 15:05 | Progress Note ---
Assessment and Plan Assessment and plan: Patient is 73 yo with CHF, COPD, hypertension. She lives in [place], went to [place] for family reunion. In [place], became short of breath but came on flight, transited [place]. Shortness of breath worse therefore came to ED for evaluation. CT showed interstital infiltrates vs edema, no PE. Patient states she missed lasix for 2 days. She was very short of breath in ED, therefore started on supplemental Oxygen by ventimask. She was diagnosed with acute respiratory failure due to CHF exacerbation, COPD exacerbation, bilateral pneumonia. Patient was started on rocephin, Zithromax, lasix iv, Duoneb and admitted. She was evaluated by Pulmonology and cardiology. She improved over few days, now down to Oxygen NC at 3l/min. She desaturated down to 87% on ambulation on room air today 01/19/19 Acute respiratory failure due to CHF exacerbation. Admitted to Telemetry Oxygen supplementation Pulmonology following Acute on chronic systolic CHF, EF 45-50% Patient missed 2 days of lasix prior to admission Cont Lasix iv bid Cardiology following COPD exacerbation Emphesema changes seen on CT chest Duoneb Albuterol prn Sepsis due to pneumonia,POA Fever due to pneumonia Leukocytosis Bilateral pneumonia Blood cultures drawn - NGTD after 72hrs Continue Ceftriaxone and Azithromycin Chronic diarrhea intermittent for years. Give Imodium prn Hypertension Monitor BP DVT prophylaxis. SCDs, Heparin Full code status Dispo: patient desaturated down to 87% on room air on ambulation today 01/19/19. Patient lives in [place]. I discussed with patient and case managers. She can prob dc out of hospital tomorrow with home oxygen, and she can stay at hotel or with family for few days get evaluated by local Physiciann prior to flying to [place]. History Interval history: Feels much better less shortness of breath Oxygen sat down to 87% on ambulation No more fever Diarrhea-she complains of chronic diarrhea for years Hospitalist Physical - Physical exam Narrative exam: GEN: Not in acute respiratory distress, lying in bed, Oxygen by NC HEENT: Normocephalic, atraumatic, Neck: supple, No JVD heart: S1 and S2 reg no murmurs, no gallop Lungs: Clear to auscultation bilat, decreased breath sounds, no wheeze Abd:soft, non tender, non distended, normal bowel sounds Ext: No edema,no clubbing, no cyanosis, Neuro:Awake,alert,oriented X 3, no focal signs, moves all ext Psych: normal mood - Constitutional Vitals: Temp Pulse Resp BP Pulse Ox 97.5 F L 68 18 130/68 94 01/19/19 08:00 01/19/19 12:07 01/19/19 12:01 01/19/19 12:07 01/19/19 12:01 General appearance: Present: other (SOB) Results - Labs CBC & Chem 7: 01/19/19 06:24 01/19/19 06:24 Labs: Laboratory Last Values WBC 9.0 K/mm3 (4.5-11.0) 01/19/19 06:24 RBC 4.43 M/mm3 (3.65-5.03) 01/19/19 06:24 Hgb 13.9 gm/dl (10.1-14.3) 01/19/19 06:24 Hct 40.8 % (30.3-42.9) 01/19/19 06:24 MCV 92 fl (79-97) 01/19/19 06:24 MCH 32 pg (28-32) 01/19/19 06:24 MCHC 34 % (30-34) 01/19/19 06:24 RDW 14.3 % (13.2-15.2) 01/19/19 06:24 Plt Count 335 K/mm3 (140-440) 01/19/19 06:24 Lymph % (Auto) 10.9 % (13.4-35.0) L 01/14/19 05:20 [place] % (Auto) 7.8 % (0.0-7.3) H 01/14/19 05:20 Eos % (Auto) 0.8 % (0.0-4.3) 01/14/19 05:20 Baso % (Auto) 0.2 % (0.0-1.8) 01/14/19 05:20 Lymph # 1.3 K/mm3 (1.2-5.4) 01/14/19 05:20 [place] # 0.9 K/mm3 (0.0-0.8) H 01/14/19 05:20 Eos # 0.1 K/mm3 (0.0-0.4) 01/14/19 05:20 Baso # 0.0 K/mm3 (0.0-0.1) 01/14/19 05:20 Seg Neutrophils % 80.3 % (40.0-70.0) H 01/14/19 05:20 Seg Neutrophils # 9.4 K/mm3 (1.8-7.7) H 01/14/19 05:20 PT 14.3 Sec. (12.2-14.9) 01/13/19 07:35 INR 1.05 (0.87-1.13) 01/13/19 07:35 APTT 32.2 Sec. (24.2-36.6) 01/13/19 07:35 POC ABG pH 7.444 (7.35-7.45) 01/14/19 15:57 POC ABG pCO2 31.8 (35-45) L 01/14/19 15:57 POC ABG pO2 59 (80-105) L 01/14/19 15:57 POC ABG HCO3 21.8 (22-26 mml/L) 01/14/19 15:57 POC ABG Total CO2 23 (23-27mmol/L) 01/14/19 15:57 POC ABG O2 Sat 92 01/14/19 15:57 POC ABG Base Excess -2 ((-2) - (+3)mmol/L) 01/14/19 15:57 FiO2 40 % 01/14/19 15:57 Sodium 142 mmol/L (137-145) 01/19/19 06:24 Potassium 3.5 mmol/L (3.6-5.0) L 01/19/19 06:24 Chloride 100.6 mmol/L (98-107) 01/19/19 06:24 Carbon Dioxide 31 mmol/L (22-30) H 01/19/19 06:24 Anion Gap 14 mmol/L 01/19/19 06:24 BUN 24 mg/dL (7-17) H 01/19/19 06:24 Creatinine 0.6 mg/dL (0.7-1.2) L 01/19/19 06:24 Estimated GFR > 60 ml/min 01/19/19 06:24 BUN/Creatinine Ratio 40 % 01/19/19 06:24 Glucose 100 mg/dL (65-100) 01/19/19 06:24 Lactic Acid 1.40 mmol/L (0.7-2.0) 01/13/19 13:15 Calcium 9.4 mg/dL (8.4-10.2) 01/19/19 06:24 Magnesium 1.90 mg/dL (1.7-2.3) 01/15/19 06:52 Total Bilirubin 2.20 mg/dL (0.1-1.2) H 01/13/19 07:35 AST 43 units/L (5-40) H 01/13/19 07:35 ALT 30 units/L (7-56) 01/13/19 07:35 Alkaline Phosphatase 149 units/L (35-129) H 01/13/19 07:35 Troponin T 0.029 ng/mL (0.00-0.029) 01/13/19 07:35 NT-Pro-B Natriuret Pep 500.5 pg/mL (0-900) 01/19/19 06:24 Total Protein 6.4 g/dL (6.3-8.2) 01/13/19 07:35 Albumin 3.4 g/dL (3.9-5) L 01/13/19 07:35 Albumin/Globulin Ratio 1.1 % 01/13/19 07:35 Urine Color [place] (Yellow) 01/13/19 00:40 Urine Turbidity Clear (Clear) 01/13/19 00:40 Urine pH 6.0 (5.0-7.0) 01/13/19 00:40 Ur Specific [place] 1.033 (1.003-1.030) H 01/13/19 00:40 Urine Protein 30 mg/dl mg/dL (Negative) 01/13/19 00:40 Urine Glucose (UA) Neg mg/dL (Negative) 01/13/19 00:40 Urine Ketones Neg mg/dL (Negative) 01/13/19 00:40 Urine Blood Neg (Negative) 01/13/19 00:40 Urine Nitrite Neg (Negative) 01/13/19 00:40 Urine Bilirubin Neg (Negative) 01/13/19 00:40 Urine Urobilinogen 4.0 mg/dL (<2.0) 01/13/19 00:40 Ur Leukocyte Esterase Neg (Negative) 01/13/19 00:40 Urine WBC (Auto) 1.0 /HPF (0.0-6.0) 01/13/19 00:40 Urine RBC (Auto) 2.0 /HPF (0.0-6.0) 01/13/19 00:40 U Epithel Cells (Auto) 1.0 /HPF (0-13.0) 01/13/19 00:40 Active Medications - Current Medications Current Medications: Generic Name Dose Route Start Last Admin Trade Name Freq PRN Reason Stop Dose Admin Acetaminophen 650 mg 01/13/19 12:27 01/18/19 16:49 Tylenol PO 650 mg Q4H PRN Administration Pain MILD(1-3)/Fever >100.5/OTERO Arformoterol Tartrate 15 mcg 01/14/19 20:00 01/19/19 07:41 Brovana Nebu IH 15 mcg Q12HRT ARIELLA Administration Atorvastatin Calcium 20 mg 01/13/19 22:00 01/18/19 22:06 Lipitor PO 20 mg QHS ARIELLA Administration Azithromycin 500 mg 01/17/19 10:00 01/19/19 12:11 Zithromax PO 500 mg QDAY ARIELLA Administration Budesonide 0.5 mg 01/14/19 20:00 01/19/19 07:40 Pulmicort IH 0.5 mg Q12HRT ARIELLA Administration Famotidine 20 mg 01/13/19 15:00 01/19/19 12:07 Pepcid PO 20 mg BID ARIELLA Administration Furosemide 40 mg 01/13/19 18:00 01/19/19 06:31 Lasix IV 40 mg BID@0600,1800 ARIELLA Administration Haloperidol Lactate 5 mg 01/14/19 17:26 01/14/19 17:52 Haldol IV 5 mg Q6H PRN Administration Agitation Heparin Sodium (Porcine) 5,000 unit 01/15/19 06:00 01/19/19 06:31 Heparin SUB-Q 5,000 unit Q8HR ARIELLA Administration Ceftriaxone Sodium 2 gm in 100 mls @ 200 mls/hr 01/14/19 10:00 01/19/19 12:02 Rocephin/Ns 2 Gm/100 Ml IV 200 mls/hr Q24HR ARIELLA Administration Protocol Ipratropium [place] 0.5 mg 01/15/19 20:00 01/19/19 13:50 Atrovent IH Not Given TIDRT ARIELLA Levalbuterol HCl 0.63 mg 01/15/19 20:00 01/19/19 13:50 Xopenex IH Not Given TIDRT ARIELLA Lisinopril 10 mg 01/14/19 10:00 01/19/19 12:07 Zestril PO 10 mg QDAY ARIELLA Administration Loperamide HCl 2 mg 01/15/19 11:00 01/17/19 16:50 Imodium PO 2 mg Q2H PRN Administration Diarrhea Metoprolol Tartrate 25 mg 01/13/19 22:00 01/19/19 11:51 Lopressor PO 25 mg BID ARIELLA Administration Morphine Sulfate 2 mg 01/13/19 12:27 Morphine IV Q4H PRN Pain, Moderate (4-6) Nicotine 21 mg 01/14/19 18:30 01/19/19 11:50 Habitrol TD 21 mg QDAY ARIELLA Administration Nitroglycerin 0.4 mg 01/13/19 13:34 Nitrostat SL .Q5MIN PRN Chest Pain Ondansetron HCl 4 mg 01/13/19 12:27 Zofran IV Q8H PRN Nausea And Vomiting Oxybutynin Chloride 5 mg 01/13/19 15:00 01/19/19 11:49 Ditropan Xl PO 5 mg DAILY ARIELLA Administration Paroxetine HCl 40 mg 01/14/19 10:00 01/19/19 13:45 Paxil PO 40 mg DAILY ARIELLA Administration Sodium Chloride 10 ml 01/13/19 22:00 01/19/19 12:17 Sodium Chloride Flush Syringe 10 Ml IV 10 ml BID ARIELLA Administration Sodium Chloride 10 ml 01/13/19 12:27 Sodium Chloride Flush Syringe 10 Ml IV PRN PRN LINE FLUSH Temazepam 15 mg 01/16/19 21:24 01/18/19 22:15 Restoril PO 15 mg QHS PRN Administration Sleep Nutrition/Malnutrition Assess - Dietary Evaluation Nutrition/Malnutrition Findings: Nutrition Notes Start: 01/14/19 11:39 Freq: Status: Active Protocol: Document 01/16/19 14:39 RM (Rec: 01/16/19 14:48 RM [id number]) Nutrition Notes Initial or Follow up Reassessment Current Diagnosis COPD,Hypertension,Heart Failure,Hyperlipidemia Other Pertinent Diagnosis pulm edema, SOB Current Diet Mech soft,Cardiac w/Ensure Enlive BID Labs/Tests Reviewed Pertinent Medications Reviewed Height 5 ft 3 in Weight 72.5 kg [place] Body Weight (kg) 52.27 BMI 28.3 Weight change and time frame Wt increased likely d/t fluid change Subjective/Other Information Pt stated that she eats 25% of her meals and drinks the Ensure Enlive. Noted preferences. Percent of energy/protein needs met: 78%/82% Burn Absent Trauma Absent #2 Nutrition Diagnosis Malnutrition Diagnosis Progress(for reassessment Continues documentation) #1 Nutrition Diagnosis Inadequate oral intake As Evidenced by Signs and Symptoms pt meeting 78% of calorie and 82% of protein needs Diagnosis Progress(for reassessment Resolved documentation) Is patient on ventilator? No Is Patient Ambulatory and/or Out of Bed Yes REE-([facility]-ambulatory/OOB) [ 1571.869 [id number]] Calculation Used for Recommendations [facility] Additional Notes Protein needs: (1.2-1.5g/kg) 74-111g/day Fluid needs: 1mL/kcal Nutrition Intervention Change Diet Order: Mech Soft/Cardiac Add Supplement/Snack (indicate name/kcal Ensure Enlive BID /protein ) Provides kCal: 700 Provides Protein (gm) 40 Goal #1 Continue to meet at least 75% of nutrient needs Anticipated Discharge Needs: Cardiac, Mech Soft Follow-Up By: 01/21/19 Additional Comments Follow for PO and ONS intakes
[2019-01-19] MEDS: RESTORIL PO PRN (23:11)
[2019-01-19] MEDS: TYLENOL PO PRN (23:11)
[2019-01-20] MEDS: LASIX IV SCH (08:00)
[2019-01-20] MEDS: HEPARIN SUB-Q SCH (09:00)
[2019-01-20] MEDS: ATROVENT IH SCH (09:32)
[2019-01-20] MEDS: PULMICORT IH SCH (09:32)
[2019-01-20] MEDS: BROVANA NEBU IH SCH (09:32)
[2019-01-20] MEDS: XOPENEX IH SCH (09:36)
[2019-01-20] MEDS: ROCEPHIN/NS 2 GM/100 ML 2 GM/100 ML BAG IV SCH (10:15)
[2019-01-20] MEDS: DITROPAN XL PO SCH (10:15)
[2019-01-20] MEDS: HABITROL TD SCH (10:15)
[2019-01-20] MEDS: PEPCID PO SCH (10:16)
--- NOTE | 2019-01-20 10:16 | Progress Note ---
Assessment and Plan Acute respiratory failure due to CHF exacerbation. Acute on chronic systolic CHF, EF 45-50% COPD exacerbation Bilateral pneumonia Chronic diarrhea intermittent for years. Hypertension Recommendations Complete antibiotics Smoking cessation discussed Ambulate patient and monitor oximetry. Add portable oxygen 2 L/m if oximetry below 89% on room air. She will need also oxygen 2 L per minute, while airborne, to fly back home, if she desaturates during ambulation on room air Prednisone 30 mg by mouth 5-7 day taper Outpatient pulmonary evaluation, was back at [place] Inhaler therapy including LAMA, LABA/ICS therapy, per GOLD guidelines. Patient can be initiated on either Stiolto or Anoro for outpatient management, after discharge We'll sign off. Reconsult if needed Subjective Date of service: 01/20/19 Principal diagnosis: HF Interval history: Reports breathing, no shortness of breath reported. Denies any fever, chest pain or expectoration Objective Vital Signs - 12hr 01/20/19 01/20/19 01/20/19 01:54 07:48 08:00 Temperature 98.6 F 98.7 F Pulse Rate 67 82 Pulse Rate [ 80 Anterior Bilateral Throughout] Pulse Rate [ 84 Bilateral] Respiratory 20 18 Rate Respiratory 20 Rate [Anterior Bilateral Throughout] Respiratory 18 Rate [Bilateral ] Blood Pressure 128/65 128/75 O2 Sat by Pulse 92 97 Oximetry 01/20/19 09:38 Temperature Pulse Rate Pulse Rate [ Anterior Bilateral Throughout] Pulse Rate [ Bilateral] Respiratory Rate Respiratory Rate [Anterior Bilateral Throughout] Respiratory Rate [Bilateral ] Blood Pressure O2 Sat by Pulse 97 Oximetry Constitutional: no acute distress, alert Eyes: non-icteric ENT: oropharynx moist Neck: supple Ascultation: Bilateral: diminished breath sounds, rales (sporadic bases posterior) Cardiovascular: regular rate and rhythm Gastrointestinal: normoactive bowel sounds Integumentary: normal Extremities: no cyanosis Neurologic: normal mental status, non-focal exam Psychiatric: mood appropriate, affect normal CBC and BMP: 01/19/19 06:24 01/20/19 05:47 ABG, PT/INR, D-dimer: ABG POC ABG pH 7.444 (7.35-7.45) 01/14/19 15:57 POC ABG pCO2 31.8 (35-45) L 01/14/19 15:57 POC ABG pO2 59 (80-105) L 01/14/19 15:57 POC ABG HCO3 21.8 (22-26 mml/L) 01/14/19 15:57 POC ABG Total CO2 23 (23-27mmol/L) 01/14/19 15:57 POC ABG O2 Sat 92 01/14/19 15:57 PT/INR, D-dimer PT 14.3 Sec. (12.2-14.9) 01/13/19 07:35 INR 1.05 (0.87-1.13) 01/13/19 07:35 Abnormal lab findings: Abnormal Labs 01/13/19 01/13/19 01/13/19 00:40 07:34 07:35 WBC 13.0 H MCHC 35 H Lymph % (Auto) 7.4 L [place] % (Auto) Lymph # 1.0 L [place] # 0.9 H Seg Neutrophils % 85.1 H Seg Neutrophils # 11.1 H POC ABG pCO2 POC ABG pO2 Potassium 3.4 L Carbon Dioxide BUN 22 H Creatinine Glucose 120 H Total Bilirubin 2.20 H AST 43 H Alkaline Phosphatase 149 H NT-Pro-B Natriuret Pep 6541 H Albumin 3.4 L Ur Specific [place] 1.033 H 01/13/19 01/14/19 01/14/19 08:19 05:20 05:20 WBC 11.7 H MCHC Lymph % (Auto) 10.9 L [place] % (Auto) 7.8 H Lymph # [place] # 0.9 H Seg Neutrophils % 80.3 H Seg Neutrophils # 9.4 H POC ABG pCO2 34.0 L POC ABG pO2 53 L Potassium 3.1 L Carbon Dioxide BUN Creatinine 0.5 L Glucose 109 H Total Bilirubin AST Alkaline Phosphatase NT-Pro-B Natriuret Pep Albumin Ur Specific [place] 01/14/19 01/15/19 01/16/19 15:57 06:52 05:05 WBC 12.0 H MCHC Lymph % (Auto) [place] % (Auto) Lymph # [place] # Seg Neutrophils % Seg Neutrophils # POC ABG pCO2 31.8 L POC ABG pO2 59 L Potassium 3.5 L Carbon Dioxide BUN 20 H Creatinine 0.5 L Glucose 167 H Total Bilirubin AST Alkaline Phosphatase NT-Pro-B Natriuret Pep Albumin Ur Specific [place] 01/16/19 01/17/19 01/17/19 05:05 05:07 05:07 WBC MCHC 35 H Lymph % (Auto) [place] % (Auto) Lymph # [place] # Seg Neutrophils % Seg Neutrophils # POC ABG pCO2 POC ABG pO2 Potassium 3.2 L Carbon Dioxide BUN 26 H 25 H Creatinine 0.5 L 0.5 L Glucose 120 H Total Bilirubin AST Alkaline Phosphatase NT-Pro-B Natriuret Pep Albumin Ur Specific [place] 01/19/19 06:24 WBC MCHC Lymph % (Auto) [place] % (Auto) Lymph # [place] # Seg Neutrophils % Seg Neutrophils # POC ABG pCO2 POC ABG pO2 Potassium 3.5 L Carbon Dioxide 31 H BUN 24 H Creatinine 0.6 L Glucose Total Bilirubin AST Alkaline Phosphatase NT-Pro-B Natriuret Pep Albumin Ur Specific [place]
[2019-01-20 10:38] VITALS: BP 141/75
[2019-01-20] MEDS: ZESTRIL PO SCH (10:38)
[2019-01-20] MEDS: LOPRESSOR PO SCH (10:38)
[2019-01-20] MEDS: SODIUM CHLORIDE FLUSH SYRINGE 10 ML IV SCH (10:38)
[2019-01-20] MEDS: PAXIL PO SCH (10:42)
--- NOTE | 2019-01-20 11:02 | Discharge Summary ---
Providers - Providers Date of Admission: 01/13/19 10:20 Date of discharge: 01/20/19 Attending physician: LM HYMAN 01/13/19 Consult to Case Management [CONS] Routine Services Needed at Discharge: Other Notified:: counter caser Comment:: dc planning 01/13/19 12:24 Consult to Physician [CONS] Routine Comment: Consulting Provider: MILANA LANDIN Physician Instructions: Reason For Exam: CHF exacerbation 01/13/19 12:25 Consult to Physician [CONS] Routine Comment: Consulting Provider: VIKKI ALONZO Physician Instructions: Reason For Exam: Acute resp failure 01/16/19 11:56 Physical Therapy Evaluation and Treat [CONS] Routine Comment: Reason For Exam: very weak and sob when ambulating [facility] Reason for admission: chf Condition: Stable Hospital course: The pt is 73 yo female with a past medical history of HF (last known EF 30-35%), reported AMI >10 years ago with no intervention required, HTN, HLP, ? COPD, tobacco use (smokes 1PPD x 50 years), ETOH use (drinks 3 glasses wine daily) who presented from [facility] and recently traveled to [place], [place] for family reunion 5 days ago where she had been progressively SOB since the onset of her trip and on the day of admission, while walking around the [place] airport waiting for connecting flight, she became severely SOB and decided to seek medical attention. Patient stated she missed her lasix for 2 days prior to. CXR with pulmonary edema. PT denied any chest pain, palpitations, n/v, diaphoresis, dizziness or syncope. She reports that she underwent coronary angiogram in 11/2017 prior to lumbar laminectomy and fusion and was told that her coronaries were "clean". Patient was seen by cardiology and pulmonology in consultation. The patient was admitted with diagnosis of acute hypoxemic respiratory failure secondary to acute on chronic diastolic heart failure, bilateral pneumonia and COPD exacerbation. Echocardiogram revealed EF of 45-50% with no significant valvular heart disease. The patient received appropriate diuresis throughout hospitalization with moderate improvement. During hospital stay, patient required oxygen and could not be weaned off completely. Therefore, pulmonary and cardiology recommended home O2. Physical therapy e valuated the patient and recommended rehabilitation for discharge. Case management is attempting to arrange for IRU. Patient diuresed appropriately from cardiac perspective and appeared to be euvolemic. Cardiology therefore felt patient could be discharged home with Lasix 40 mg daily. Pulmonary recommended Prednisone 30 mg by mouth 5-7 day taper Outpatient pulmonary evaluation, was back at [place], contInhaler therapy including LAMA, LABA/ICS therapy, per GOLD guidelines. Disposition: [facility] Time spent for discharge: 35 - Discharge Diagnoses (1) Acute HFrEF (heart failure with reduced ejection fraction) Status: Acute (2) Acute heart failure Status: Acute (3) Acute respiratory failure Status: Acute (4) Hypoxia Status: Acute (5) Pulmonary edema Status: Acute (6) Alcohol use Status: Chronic (7) COPD (chronic obstructive pulmonary disease) Status: Chronic (8) HTN (hypertension) Status: Chronic (9) History of cardiomyopathy Status: Chronic (10) Hyperlipidemia Status: Chronic (11) Tobacco use Status: Chronic Core Measure Documentation - Palliative Care Palliative Care/ Comfort Measures: Not Applicable - Core Measures Any of the following diagnoses?: none Exam - Constitutional Vitals: Temp Pulse Resp BP Pulse Ox 98.7 F 84 18 141/75 92 01/20/19 07:48 01/20/19 10:38 01/20/19 08:00 01/20/19 10:38 01/20/19 10:29 General appearance: Present: no acute distress, well-nourished - EENT Eyes: Present: PERRL ENT: hearing intact, clear oral mucosa - Neck Neck: Present: supple, normal ROM - Respiratory Respiratory effort: normal Respiratory: bilateral: CTA - Cardiovascular Heart Sounds: Present: S1 & S2. Absent: rub, click - Extremities Extremities: pulses symmetrical, No edema Peripheral Pulses: within normal limits - Abdominal General gastrointestinal: Present: soft, non-tender, non-distended, normal bowel sounds Female genitourinary: Present: normal - Integumentary Integumentary: Present: clear, warm, dry - Musculoskeletal Musculoskeletal: gait normal, strength equal bilaterally - Psychiatric Psychiatric: appropriate mood/affect, intact judgment & insight - Neurologic Neurologic: CNII-XII intact, moves all extremities Plan Activity: advance as tolerated Weight Bearing Status: Weight Bear as Tolerated Diet: regular Follow up with: NILDA JOHNS MD [Primary Care Provider] - 3-5 Days Prescriptions: Furosemide [Lasix] 40 mg PO DAILY #30 tablet methylPREDNISolone [Medrol] 4 mg PO QAM #1 tab.ds.pk Tiotropium Br/Olodaterol HCl [Stiolto Respimat Inhal [place]] 4 gm IH DAILY #30 mist.inhal
[2019-01-20] MEDS: ZITHROMAX PO SCH (11:06)
[2019-01-21] MEDS ORDERED: HABITROL TD SCH (10:00)
== END 2019-01-20 12:40 | DRG 871 ==
LOC: ED 06:44 → 2B-ACE 10:20 → 4A 16:21 → 2B-ACE 01-19 18:49
PROVIDERS: ADMIT Internal Medicine; ATTEND Hospitalist
PROC: 4A033R1 Measurement of Arterial Saturation, Peripheral, Percutaneous Approach (ICD-10-PCS; principal; 2019-01-13)
PROC: 5A09357 Assistance with Respiratory Ventilation, Less than 24 Consecutive Hours, Continuous Positive Airway Pressure (ICD-10-PCS; 2019-01-14)
DX: A41.9 Sepsis, unspecified organism (principal); J18.9 Pneumonia, unspecified organism; I50.23 Acute on chronic systolic (congestive) heart failure; J96.01 Acute respiratory failure with hypoxia; J44.1 Chronic obstructive pulmonary disease with (acute) exacerbation; F17.210 Nicotine dependence, cigarettes, uncomplicated; K52.9 Noninfective gastroenteritis and colitis, unspecified; E78.5 Hyperlipidemia, unspecified; I11.0 Hypertensive heart disease with heart failure; J44.9 Chronic obstructive pulmonary disease, unspecified; Z90.710 Acquired absence of both cervix and uterus; Z80.3 Family history of malignant neoplasm of breast; Z82.49 Family history of ischemic heart disease and other diseases of the circulatory system; I25.2 Old myocardial infarction; Z72.89 Other problems related to lifestyle; Z98.1 Arthrodesis status
CPT/HCPCS: 36415; 36600; 71045; 71275; 80048; 80053; 81001; 82140; 82803; 83735; 83880; 84132; 84484; 85025; 85027; 85610; 85730; 87040; 87086; 93005; 93010; 93306; 94640; 94660; 94760; G0378; A9270-GY; J0456; J0696; J1630; J1644; J1940; J2930; J7050; Q9967